=== PATIENT | male | born 1960 ===

== ENCOUNTER 2017-05-30 13:10 | Emergency (ER) | payer OTHER ==
[2017-05-30 13:17] VITALS: TEMP 98.2
--- NOTE | 2017-05-30 13:41 | C.PDOC ---
History Of Present Illness 56 year old male presents to the ED for evaluation of worsening retention which began around 2 days ago. Patient reports small amount of urinary output as well as distention and suprapubic abdominal pain. Patient denies any other associated symptoms or prior history of urinary retention. worsening retention x 2 days. +SMALL URINE OUTPUT. +SUPRAPUB PAIN, DISTENTION. NO OTHER ASSOC SX. NO PRIOR HO URINARY RETENTION EXAM MOD DIST ABD +SUPRAPUB TEND DISTENDED SOFT Time Seen by Provider: 05/30/17 13:22 Chief Complaint (Nursing): Abdominal Pain History Per: Patient History/Exam Limitations: no limitations Onset/Duration Of Symptoms: Days (2) Current Symptoms Are (Timing): Still Present Quality Of Discomfort: "Pain" Additional History Per: Patient Past Medical History Reviewed: Historical Data, Nursing Documentation, Vital Signs Vital Signs: Last Vital Signs Temp 98.2 F 05/30/17 13:14 Pulse 75 05/30/17 13:14 Resp 16 05/30/17 13:14 BP 163/83 H 05/30/17 13:14 Pulse Ox 99 05/30/17 14:23 - Medical History PMH: No Chronic Diseases Surgical History: No Surg Hx Family History: States: Unknown Family Hx - Social History Hx Alcohol Use: Yes Hx Substance Use: No - Immunization History Hx Tetanus Toxoid Vaccination: No Hx Influenza Vaccination: No Hx Pneumococcal Vaccination: No Review Of Systems Gastrointestinal: Positive for: Abdominal Pain (suprapubic ), Other (abdominal distention ) Genitourinary: Positive for: Other (small urine output ) Physical Exam - Physical Exam Appears: Non-toxic, Other (moderate distress ) Skin: Normal Color, Warm, Dry Head: Atraumatic, Normacephalic Eye(s): bilateral: Normal Inspection Oral Mucosa: Moist Neck: Supple Chest: Symmetrical, No Deformity, No Tenderness Cardiovascular: Rhythm Regular, No Murmur Respiratory: Normal Breath Sounds, No Rales, No Rhonchi, No Wheezing Gastrointestinal/Abdominal: Soft, Tenderness (suprapubic ), Distention, No Guarding, No Rebound Extremity: Normal ROM, Capillary Refill (less than 2 seconds ) Neurological/Psych: Oriented x3, Normal Speech, Normal Cognition Gait: Steady ED Course And Treatment O2 Sat by Pulse Oximetry: 99 (on RA ) Pulse Ox Interpretation: Normal Progress Note: Flomax PO administered. Progress - Re-Evaluation Re-evaluation Note: 05/30/17 13:39 PROCEDURE: BEDSIDE BLADDER SCAN BY ME. +>850 CC URINARY RETENTION. PT TOLERATED WELL 05/30/17 14:38 FEELS BETTER. - Data Reviewed Data Reviewed: Diagnostic imaging, Old records Disposition Counseled Patient/Family Regarding: Studies Performed, Diagnosis, Need For Followup, Rx Given - Disposition Referrals: Colton Hernandez MD [Staff Provider] - Disposition: HOME/ ROUTINE Disposition Time: 14:39 Condition: IMPROVED Prescriptions: Ciprofloxacin [Cipro] 1 tab PO BID #14 tab Tamsulosin [Flomax] 0.4 mg PO DAILY #14 cap Instructions: Urinary Retention in Men (ED), Vigil Catheter Placement and Care (ED) Forms: [employer] (Nauruan) Print Language: ZIMBABWEAN - Clinical Impression Clinical Impression: Acute urinary retention - Scribe Statement The provider has reviewed the documentation as recorded by the Scribe (Rosario Gaona) Provider Attestation: All medical record entries made by the Scribe were at my direction and personally dictated by me. I have reviewed the chart and agree that the record accurately reflects my personal performance of the history, physical exam, medical decision making, and the department course for this patient. I have also personally directed, reviewed, and agree with the discharge instructions and disposition.
[2017-05-30 14:45] VITALS: BP 125/65; PULSE 72; RESP 18; O2SAT 98
== END 2017-05-30 14:55 | disposition home or self-care (01) ==
LOC: C.ER 13:10
DX: R33.9 Retention of urine, unspecified (principal)

== ENCOUNTER 2017-12-04 09:48 | Emergency (ER) | payer OTHER ==
[2017-12-04] MEDS ORDERED: Sodium Chloride 0.9% 1,000 ML IV ONE (10:19)
[2017-12-04] MEDS ORDERED: Sodium Chloride 0.9% 1,000 ML ONE (10:30)
--- NOTE | 2017-12-04 10:45 | C.PDOC ---
History Of Present Illness 57 year old male presents to ED for evaluation of generalized abdominal pain, and multiple episodes of diarrhea for the last 2 days. Patient states his symptoms began after eating goat stew at a restaurant 2 days ago. Patient reports trying Imodium, Pepto-Bismol, and some tea without relief. Notes feeling dehydrated. Otherwise, denies nausea, vomiting, blood in stool, urinary symptoms, fever, chills, or any other complaints at this time. Time Seen by Provider: 12/04/17 10:13 Chief Complaint (Nursing): Abdominal Pain History Per: Patient History/Exam Limitations: no limitations Onset/Duration Of Symptoms: Days Current Symptoms Are (Timing): Still Present Location Of Pain/Discomfort: Diffuse Quality Of Discomfort: "Pain" Associated Symptoms: Diarrhea. denies: Fever, Chills, Nausea, Vomiting, Loss Of Appetite, Back Pain, Urinary Symptoms Exacerbating Factors: None Alleviating Factors: None Recent travel outside of the [place]: No Additional History Per: Patient Past Medical History Reviewed: Historical Data, Nursing Documentation, Vital Signs Vital Signs: Last Vital Signs Temp 98.0 F 12/04/17 11:37 Pulse 80 12/04/17 11:37 Resp 14 12/04/17 11:37 BP 117/67 12/04/17 11:37 Pulse Ox 98 12/04/17 11:37 - Medical History PMH: Asthma Family History: States: Unknown Family Hx - Social History Hx Alcohol Use: Yes Hx Substance Use: No - Immunization History Hx Tetanus Toxoid Vaccination: No Hx Influenza Vaccination: No Hx Pneumococcal Vaccination: No Review Of Systems Except As Marked, All Systems Reviewed And Found Negative. Constitutional: Negative for: Fever, Chills Cardiovascular: Negative for: Chest Pain, Palpitations Respiratory: Negative for: Cough, Shortness of Breath Gastrointestinal: Positive for: Abdominal Pain, Diarrhea. Negative for: Nausea , Vomiting, Melena, Hematochezia Genitourinary: Negative for: Dysuria, Frequency, Hematuria Neurological: Negative for: Headache, Dizziness Physical Exam - Physical Exam Appears: Non-toxic, No Acute Distress Skin: Normal Color, Warm, Dry Head: Atraumatic, Normacephalic Eye(s): bilateral: Normal Inspection Tongue: Other (moist tongue) Lips: Other (dry lips) Throat: Normal Neck: Normal ROM, Supple Cardiovascular: Rhythm Regular, No Murmur Respiratory: Normal Breath Sounds, No Rales, No Rhonchi, No Wheezing Gastrointestinal/Abdominal: Bowel Sounds (hyperactive), Soft, No Tenderness, No Guarding, No Rebound Back: No CVA Tenderness Extremity: Normal ROM, No Deformity Neurological/Psych: Oriented x3, Normal Speech ED Course And Treatment - Laboratory Results Result Diagrams: 12/04/17 10:43 12/04/17 10:43 O2 Sat by Pulse Oximetry: 99 (RA) Pulse Ox Interpretation: Normal Medical Decision Making Medical Decision Making: Impression: abdominal pain and diarrhea Plan: Blood work Urinalysis Pepcid, IV fluids Progress note: Labs reviewed showing no leukocytosis, bands or significant electrolyte abnormality. Patient was treated with IV fluids and Pepcid. On re- evaluation, patient is resting comfortably and reported feeling better. Abdomen remains soft, and non-tender. He had no fever and stable vital signs. Patient to be discharged with Rx. Advised BRAT diet and to take analgesics and drink fluids. Patient felt comfortable going home and given follow up instructions. Disposition Counseled Patient/Family Regarding: Diagnosis, Need For Followup, Rx Given - Disposition Disposition: HOME/ ROUTINE Disposition Time: 11:55 Condition: IMPROVED Additional Instructions: Drink fluids to prevent dehydration. Take protonix for abdominal pain, continue immodium. Try low-fat diet with increase in fluids such as sport drink, or gelatin. Try soup, rice, bread, crackers, cereal, or bananas to help with diarrhea. Avoid high sugar foods or drinks (soda and juice) , fatty foods Prescriptions: Pantoprazole Sodium [Protonix] 20 mg PO DAILY #20 ect Instructions: Diarrhea in Adolescents and Adults Forms: [facility] (Burundian) Print Language: MAURITANIAN - Clinical Impression Clinical Impression: Diarrhea, Abdominal colic - PA / AIRPORT OPERATIONS OFFICER / Resident Statement MD/DO has reviewed & agrees with the documentation as recorded. - Scribe Statement The provider has reviewed the documentation as recorded by the Penelope Gaona All medical record entries made by the Penelope were at my direction and personally dictated by me. I have reviewed the chart and agree that the record accurately reflects my personal performance of the history, physical exam, medical decision making, and the department course for this patient. I have also personally directed, reviewed, and agree with the discharge instructions and disposition.
[2017-12-04 10:52] LABS: BASO % 0.3 % (0.0-2.0); EOS # 0.1 K/uL (0.0-0.7); EOS % 1.5 % (0.0-4.0); HEMOGLOBIN 15.6 g/dL (12.0-18.0); LYMPH # 1.1 K/uL (1.0-4.3); LYMPH % 14.3 % (20.0-40.0); MEAN CELL VOLUME 84.4 fL (80.0-94.0); MEAN CORPUSCULAR HEMOGLOBIN 28.9 pg (27.0-31.0); MEAN CORPUSCULAR HGB CONC 34.3 g/dL (33.0-37.0); MEAN PLATELET VOLUME 7.7 fL (7.2-11.7); MONO # 0.7 K/uL (0.0-0.8); MONO % 9.6 % (0.0-10.0); NEUT # 5.6 K/uL (1.8-7.0); NEUT % 74.3 % (50.0-75.0); RBC 5.41 Mil/uL (4.40-5.90); RED CELL DISTRIBUTION WIDTH 13.9 % (11.5-14.5); WHITE BLOOD COUNT 7.5 K/uL (4.8-10.8)
[2017-12-04 10:56] LABS: SQUAMOUS EPITHIAL 1 /hpf (0-5); URINE BACTERIA RARE (<OCC); URINE BILIRUBIN NEGATIVE (NEGATIVE); URINE BLOOD NEGATIVE (NEGATIVE); URINE CLARITY Hazy (Clear); URINE COLOR Yellow (YELLOW); URINE GLUCOSE (UA) NORMAL (Normal); URINE LEUKOCYTE ESTERASE 2+ Leu/uL (Negative); URINE PROTEIN 1+ mg/dL (NEGATIVE); URINE UROBILINOGEN NORMAL mg/dL (0.2-1.0)
[2017-12-04 11:02] LABS: ALB/GLOB RATIO 1.1 (1.0-2.1); ALBUMIN 4.5 g/dL (3.5-5.0); ALT/SGPT 52 U/L (21-72); AST/SGOT 29 U/L (17-59); BLOOD UREA NITROGEN 22 mg/dL (9-20); CALCIUM 8.4 mg/dl (8.6-10.4); GFR AFRICAN-AMERICAN > 60; GFR NON-AFRICAN AMERICAN > 60; LIPASE 217 U/L (23-300)
[2017-12-04 11:38] VITALS: BP 117/67; PULSE 80; RESP 14; TEMP 98
[2017-12-04 15:36] VITALS: O2SAT 99
== END 2017-12-04 11:56 | disposition home or self-care (01) ==
LOC: C.ER 09:48
DX: R10.84 Generalized abdominal pain (principal); R19.7 Diarrhea, unspecified
CPT/HCPCS: 80053; 81001; 83690; 85025; 96361; 96374; 99285; J7040

== ENCOUNTER 2017-12-05 09:09 | Emergency (ER) | payer OTHER ==
[2017-12-05 09:16] VITALS: RESP 20; TEMP 97.9; O2SAT 98
[2017-12-05] MEDS ORDERED: Sodium Chloride 0.9% 1,000 ML IV ONE (09:29)
--- NOTE | 2017-12-05 09:39 | C.PDOC ---
History Of Present Illness 57 year old male presents to ED for evaluation of generalized abdominal pain, and multiple episodes of non-bloody diarrhea for the last 3 days. He reports diarrhea is watery and foul smelling. He was seen in ED yesterday, did not fill scripts and states he feels weak. Patient states his symptoms began after eating goat stew at a restaurant 3 days ago. Patient reports trying Imodium, Pepto-Bismol, and some tea without relief. Otherwise, denies nausea, vomiting, blood in stool, urinary symptoms, fever, chills, or any other complaints at this time. Time Seen by Provider: 12/05/17 09:25 Chief Complaint (Nursing): Abdominal Pain History Per: Patient History/Exam Limitations: no limitations Onset/Duration Of Symptoms: Days Current Symptoms Are (Timing): Still Present Context: Food Location Of Pain/Discomfort: Diffuse Radiation Of Pain To:: None Quality Of Discomfort: "Pain" Associated Symptoms: Diarrhea. denies: Nausea, Vomiting, Back Pain, Chest Pain , Urinary Symptoms Exacerbating Factors: None Alleviating Factors: None. denies: OTC Meds Recent travel outside of the [place]: No Additional History Per: Patient Past Medical History Reviewed: Historical Data, Nursing Documentation, Vital Signs Vital Signs: Last Vital Signs Temp 97.9 F 12/05/17 12:28 Pulse 69 12/05/17 12:28 Resp 20 12/05/17 12:28 BP 117/73 12/05/17 12:28 Pulse Ox 98 12/05/17 13:58 - Medical History PMH: Asthma, Benign Prostatic Hyperplasia Family History: States: Unknown Family Hx - Social History Hx Alcohol Use: Yes Hx Substance Use: No - Immunization History Hx Tetanus Toxoid Vaccination: No Hx Influenza Vaccination: No Hx Pneumococcal Vaccination: No Review Of Systems Except As Marked, All Systems Reviewed And Found Negative. Constitutional: Positive for: Weakness. Negative for: Fever, Chills Gastrointestinal: Positive for: Abdominal Pain, Diarrhea. Negative for: Nausea , Vomiting, Melena, Hematochezia Genitourinary: Negative for: Dysuria, Frequency, Hematuria Musculoskeletal: Negative for: Back Pain Physical Exam - Physical Exam Appears: Non-toxic, No Acute Distress Skin: Normal Color, Warm, Dry Head: Atraumatic, Normacephalic Eye(s): bilateral: Normal Inspection Oral Mucosa: Moist Neck: Normal ROM, Supple Cardiovascular: Rhythm Regular, No Murmur Respiratory: Normal Breath Sounds, No Rales, No Rhonchi, No Wheezing Gastrointestinal/Abdominal: Soft, Tenderness (generalized), No Guarding, No Rebound Back: No CVA Tenderness Extremity: Normal ROM, No Deformity Neurological/Psych: Oriented x3, Normal Speech ED Course And Treatment - Laboratory Results Result Diagrams: 12/05/17 10:08 12/05/17 10:08 O2 Sat by Pulse Oximetry: 98 (RA) Pulse Ox Interpretation: Normal - CT Scan/US Abd & Pelvis CT Other Rad Studies (CT/US): Read By Radiologist, Radiology Report Reviewed CT/US Interpretation: CT abdomen and pelvis. History: Abdominal pain. Diarrhea. Comparison: None available. Technique: Multiple contiguous axial images were performed through the abdomen and pelvis with the use of intravenous contrast. Subsequently, sagittal and coronal reformatted images were obtained. This CT exam was performed using one or more of the following dose reduction techniques: Automated exposure control, adjustment of the mA and/ or kV according to patient size, and/or use of iterative reconstruction technique. Findings: Scattered atelectasis at the lung bases. No pleural or pericardial effusion. Prominent liver with diffuse fatty infiltration. Gallbladder appears preserved. Spleen appears preserved. Nodular thickening of the adrenal glands with an 8 millimeter low-attenuation lesion in the left adrenal gland demonstrating a Hounsfield unit attenuation of 48, indeterminate. Pancreas appears preserved. Upper abdominal bowel grossly preserved. Right kidney: No calculi or hydronephrosis. Left Kidney: No calculi or hydronephrosis. Underdistended and or mildly thickened urinary bladder. Prominent heterogeneous prostate measuring up to 7.3 x 6 centimeters with associated internal calcifications. Underdistention and or mild thickening of the transverse and descending colon. Fluid-filled ascending colon. Scattered diverticuli. Appendix within normal limits. Few shotty para-aortic and inguinal lymph nodes. Few shotty mesenteric lymph nodes. Small fat containing bilateral inguinal hernias. Degenerative changes in the spine. Anterolisthesis of L4 on L5 with associated pars defects. Impression: 1. Underdistention and or mild thickening of the transverse and descending colon. Fluid-filled ascending colon. Clinical correlation. 2. Prominent heterogeneous prostate measuring up to 7.3 x 6 centimeters with associated internal calcifications. Clinical correlation. 3. Prominent liver with diffuse fatty infiltration. 4. Nodular thickening of the adrenal glands with an 8 millimeter low-attenuation lesion in the left adrenal gland demonstrating a Hounsfield unit attenuation of 48, indeterminate. 5. Underdistended and or mildly thickened urinary bladder. 6. Small fat containing bilateral inguinal hernias. 7. Anterolisthesis of L4 on L5 with associated pars defects. Medical Decision Making Medical Decision Making: Impression: Diarrhea Plan: Abd & Pelvis CT Blood work Urinalysis IV fluids Progress: Labs reviewed with no acute changes from yesterday. CT scan does not show any surgical or infectious pathology. See full report. Reassess: On reassessment, patient is resting comfortably, abdomen remains soft. Patient states he is feeling better. Discussed results with patient, and copy of CT report was provided. Patient feels comfortable going home and will be discharged. Patient given follow up instructions. Instructed to return to ER if symptoms worsen or new symptoms arise. Disposition Counseled Patient/Family Regarding: Diagnosis, Need For Followup, Rx Given - Disposition Referrals: [facility] [Outside] [facility] [Outside] Disposition: HOME/ ROUTINE Disposition Time: 12:10 Condition: IMPROVED Additional Instructions: Vaya a duron mdico o la clnica en 2-5 tomas sin falta, para mas evaluacin. [place] los medicamentos rosalia indicado. Volver a la jarett de emergencia en cualquier momento si los sntomas persisten o empeoran. Prescriptions: Ciprofloxacin [Cipro] 1 tab PO BID #14 tab Instructions: Diarrhea in Adolescents and Adults Forms: [employer] (Romanian) Print Language: CO[place] RICAN - Clinical Impression Clinical Impression: Diarrhea - PA / SLURRY CONTROL OPERATOR HELPER / Resident Statement MD/DO has reviewed & agrees with the documentation as recorded. - Scribe Statement The provider has reviewed the documentation as recorded by the Corazonibe Db Gaona All medical record entries made by the Corazonibe were at my direction and personally dictated by me. I have reviewed the chart and agree that the record accurately reflects my personal performance of the history, physical exam, medical decision making, and the department course for this patient. I have also personally directed, reviewed, and agree with the discharge instructions and disposition.
[2017-12-05] MEDS ORDERED: Iohexol 300 100 ML IJ ONE (09:48)
[2017-12-05] MEDS ORDERED: Sodium Chloride 0.9% 1,000 ML ONE (09:51)
[2017-12-05 10:11] LABS: BASO % 0.6 % (0.0-2.0); EOS # 0.1 K/uL (0.0-0.7); EOS % 1.6 % (0.0-4.0); HEMOGLOBIN 15.3 g/dL (12.0-18.0); LYMPH # 1.6 K/uL (1.0-4.3); LYMPH % 28.2 % (20.0-40.0); MEAN CORPUSCULAR HEMOGLOBIN 28.8 pg (27.0-31.0); MEAN CORPUSCULAR HGB CONC 34.2 g/dL (33.0-37.0); MEAN PLATELET VOLUME 7.5 fL (7.2-11.7); MONO % 17.2 % (0.0-10.0); NEUT # 2.9 K/uL (1.8-7.0); NEUT % 52.4 % (50.0-75.0); NRBC % 0.1 % (0.0-2.0); RBC 5.32 Mil/uL (4.40-5.90); WHITE BLOOD COUNT 5.6 K/uL (4.8-10.8)
[2017-12-05 10:25] LABS: URINE BACTERIA RARE (<OCC); URINE BILIRUBIN NEGATIVE (NEGATIVE); URINE BLOOD NEGATIVE (NEGATIVE); URINE CLARITY Hazy (Clear); URINE COLOR Yellow (YELLOW); URINE GLUCOSE (UA) NORMAL (Normal); URINE LEUKOCYTE ESTERASE 2+ Leu/uL (Negative); URINE PROTEIN 1+ mg/dL (NEGATIVE); URINE UROBILINOGEN NORMAL mg/dL (0.2-1.0)
[2017-12-05 10:48] LABS: ALT/SGPT 42 U/L (21-72); AST/SGOT 50 U/L (17-59); BLOOD UREA NITROGEN 15 mg/dL (9-20); CALCIUM 8.5 mg/dl (8.6-10.4); GFR AFRICAN-AMERICAN > 60; GFR NON-AFRICAN AMERICAN > 60; LIPASE 208 U/L (23-300)
--- NOTE | 2017-12-05 12:13 | CT ---
CT abdomen and pelvis History: Abdominal pain. Diarrhea. Comparison: None available. Technique: Multiple contiguous axial images were performed through the abdomen and pelvis with the use of intravenous contrast. Subsequently, sagittal and coronal reformatted images were obtained. This CT exam was performed using one or more of the following dose reduction techniques: Automated exposure control, adjustment of the mA and/or kV according to patient size, and/or use of iterative reconstruction technique. Findings: Scattered atelectasis at the lung bases. No pleural or pericardial effusion. Prominent liver with diffuse fatty infiltration. Gallbladder appears preserved. Spleen appears preserved. Nodular thickening of the adrenal glands with an 8 millimeter low-attenuation lesion in the left adrenal gland demonstrating a Hounsfield unit attenuation of 48, indeterminate. Pancreas appears preserved. Upper abdominal bowel grossly preserved. Right kidney: No calculi or hydronephrosis. Left Kidney: No calculi or hydronephrosis. Underdistended and or mildly thickened urinary bladder. Prominent heterogeneous prostate measuring up to 7.3 x 6 centimeters with associated internal calcifications. Underdistention and or mild thickening of the transverse and descending colon. Fluid-filled ascending colon. Scattered diverticuli. Appendix within normal limits. Few shotty para-aortic and inguinal lymph nodes. Few shotty mesenteric lymph nodes. Small fat containing bilateral inguinal hernias. Degenerative changes in the spine. Anterolisthesis of L4 on L5 with associated pars defects. Impression: 1. Underdistention and or mild thickening of the transverse and descending colon. Fluid-filled ascending colon. Clinical correlation. 2. Prominent heterogeneous prostate measuring up to 7.3 x 6 centimeters with associated internal calcifications. Clinical correlation. 3. Prominent liver with diffuse fatty infiltration. 4. Nodular thickening of the adrenal glands with an 8 millimeter low-attenuation lesion in the left adrenal gland demonstrating a Hounsfield unit attenuation of 48, indeterminate. 5. Underdistended and or mildly thickened urinary bladder. 6. Small fat containing bilateral inguinal hernias. 7. Anterolisthesis of L4 on L5 with associated pars defects.
[2017-12-05 12:29] VITALS: BP 117/73; PULSE 69
== END 2017-12-05 12:45 | disposition home or self-care (01) ==
LOC: C.ER 09:09
DX: R19.7 Diarrhea, unspecified (principal)
CPT/HCPCS: 74177; 80053; 81001; 83690; 85025; 96360; 99285; J7040; Q9967

== ENCOUNTER 2017-12-07 09:18 | Emergency (ER) | payer OTHER ==
[2017-12-07 09:32] VITALS: BMI 23.8
[2017-12-07] MEDS ORDERED: Sodium Chloride 0.9% 1,000 ML IV STA (11:22)
--- NOTE | 2017-12-07 11:25 | C.PDOC ---
History Of Present Illness 57 y/o M c PMHx DM, asthma p/w diarrhea x 5 days. Reports 12 episodes per day, watery, with diffuse generalized abdominal pain that is intermittent. Patient states symptoms began after eating goat stew. Has taken loperamide and pepto bismol without relief. This is his 3rd ED visit, was discharged on Cipro after last visit and is taking. CT was unremarkable for any emergent findings. Patient returns stating his diarrhea is not improving and he is feeling increasingly weak. Denies syncope, chest pain, dyspnea, nausea, vomiting, fever , bloody stool, recent travel, camping/hiking. Time Seen by Provider: 12/07/17 10:46 Chief Complaint (Nursing): GI Problem Past Medical History Vital Signs: Last Vital Signs Temp 98.3 F 12/07/17 09:32 Pulse 93 H 12/07/17 09:32 Resp 20 12/07/17 09:32 BP 122/78 12/07/17 09:32 Pulse Ox 97 12/07/17 11:25 - Medical History PMH: Asthma, Benign Prostatic Hyperplasia Family History: States: Unknown Family Hx - Social History Hx Alcohol Use: Yes Hx Substance Use: No - Immunization History Hx Tetanus Toxoid Vaccination: No Hx Influenza Vaccination: No Hx Pneumococcal Vaccination: No Review Of Systems Except As Marked, All Systems Reviewed And Found Negative. Constitutional: Negative for: Fever Cardiovascular: Negative for: Chest Pain Physical Exam - Physical Exam Additional Physical Exam Comments: Gen: NAD Head: NC/AT Eyes: No icterus ENT: MMM Neck: Supple Chest: No tenderness CV: Regular rate Lungs: CTA b/l Abd: Diffuse tenderness without guarding. Soft Back: NO CVA tenderness Skin: No rash Extremities: No edema Neuro: Alert, no focal deficit ED Course And Treatment - Laboratory Results Result Diagrams: 12/07/17 11:38 12/07/17 11:38 O2 Sat by Pulse Oximetry: 97 Medical Decision Making Medical Decision Making: Recheck labs for hydration status. IVF. Labs unchanged. Urine normal specific gravity, no ketones. Patient in no distress. Advised f/u clinic, continue Abx, PO hydration, instructed to return to ED for worsening pain, fever, dyspnea, vomiting. Disposition - Disposition Referrals: [facility] [Outside] Disposition: HOME/ ROUTINE Disposition Time: 12:31 Condition: STABLE Instructions: Diarrhea in Adolescents and Adults Forms: [facility] (Botswanan) - Clinical Impression Clinical Impression: Diarrhea
[2017-12-07 11:44] LABS: BASO % 0.5 % (0.0-2.0); EOS # 0.2 K/uL (0.0-0.7); EOS % 3.1 % (0.0-4.0); HEMOGLOBIN 16.1 g/dL (12.0-18.0); LYMPH # 1.7 K/uL (1.0-4.3); LYMPH % 33.1 % (20.0-40.0); MEAN CELL VOLUME 83.4 fL (80.0-94.0); MEAN CORPUSCULAR HEMOGLOBIN 28.9 pg (27.0-31.0); MEAN CORPUSCULAR HGB CONC 34.7 g/dL (33.0-37.0); MEAN PLATELET VOLUME 7.6 fL (7.2-11.7); MONO # 0.6 K/uL (0.0-0.8); MONO % 11.2 % (0.0-10.0); NEUT # 2.7 K/uL (1.8-7.0); NEUT % 52.1 % (50.0-75.0); NRBC % 0.1 % (0.0-2.0); RBC 5.56 Mil/uL (4.40-5.90); RED CELL DISTRIBUTION WIDTH 13.8 % (11.5-14.5); WHITE BLOOD COUNT 5.2 K/uL (4.8-10.8)
[2017-12-07 11:57] LABS: ALB/GLOB RATIO 1.3 (1.0-2.1); ALBUMIN 4.3 g/dL (3.5-5.0); ALT/SGPT 59 U/L (21-72); AST/SGOT 36 U/L (17-59); BLOOD UREA NITROGEN 12 mg/dL (9-20); CALCIUM 8.3 mg/dl (8.6-10.4); GFR AFRICAN-AMERICAN > 60; GFR NON-AFRICAN AMERICAN > 60; LIPASE 271 U/L (23-300)
[2017-12-07 12:24] LABS: SQUAMOUS EPITHIAL < 1 /hpf (0-5); URINE BACTERIA RARE (<OCC); URINE BILIRUBIN NEGATIVE (NEGATIVE); URINE BLOOD NEGATIVE (NEGATIVE); URINE CLARITY Hazy (Clear); URINE COLOR Yellow (YELLOW); URINE GLUCOSE (UA) NORMAL (Normal); URINE HYALINE CAST 0-2 /lpf (0-2); URINE LEUKOCYTE ESTERASE NEG Leu/uL (Negative); URINE PROTEIN NEGATIVE (NEGATIVE); URINE UROBILINOGEN NORMAL mg/dL (0.2-1.0)
[2017-12-07 12:52] VITALS: BP 125/79; PULSE 65; RESP 16; TEMP 97.6; O2SAT 99
== END 2017-12-07 13:15 | disposition home or self-care (01) ==
LOC: C.ER 09:18
DX: R19.7 Diarrhea, unspecified (principal)
CPT/HCPCS: 80053; 81001; 83690; 85025; 96360; 96361; 99285; J7040

== ENCOUNTER 2018-06-08 18:42 | Inpatient (IN) | payer OTHER ==
[2018-06-08 18:43] VITALS: BMI 23.8
--- NOTE | 2018-06-08 19:53 | C.PDOC ---
History Of Present Illness 57 year old male presents to the ED c/o inability to urinate for the past 4-5 hours. Patient is also states he had on and off episodes of diarrhea for the past 5 days as well. Patient denies fever, chills, nausea, vomit, weakness, nu mbness, rash. Chief Complaint (Nursing): Abdominal Pain History Per: Patient History/Exam Limitations: no limitations Onset/Duration Of Symptoms: Hrs (4-5) Location Of Pain/Discomfort: Suprapubic Radiation Of Pain To:: None Quality Of Discomfort: Pressure Associated Symptoms: Urinary Symptoms Alleviating Factors: None Recent travel outside of the [place]: No Additional History Per: Patient Past Medical History Reviewed: Historical Data, Nursing Documentation, Vital Signs Vital Signs: Last Vital Signs Temp 98.7 F 06/08/18 18:55 Pulse 106 H 06/08/18 18:55 Resp 20 06/08/18 18:55 BP 136/80 06/08/18 18:55 Pulse Ox 98 06/08/18 18:55 - Medical History PMH: Asthma, Benign Prostatic Hyperplasia Surgical History: No Surg Hx Family History: States: Unknown Family Hx - Social History Hx Alcohol Use: No Hx Substance Use: No - Immunization History Hx Tetanus Toxoid Vaccination: No Hx Influenza Vaccination: No Hx Pneumococcal Vaccination: No Review Of Systems Constitutional: Negative for: Fever, Chills Cardiovascular: Negative for: Chest Pain Respiratory: Negative for: Shortness of Breath Gastrointestinal: Positive for: Abdominal Pain. Negative for: Nausea, Vomiting Genitourinary: Positive for: Other (inability to urinate) Musculoskeletal: Negative for: Back Pain Neurological: Negative for: Weakness, Numbness Physical Exam - Physical Exam Appears: Non-toxic, In Acute Distress Skin: Normal Color, Warm, Dry Head: Atraumatic, Normacephalic Eye(s): bilateral: Normal Inspection Neck: Normal ROM, Supple Chest: Symmetrical Cardiovascular: Rhythm Regular Respiratory: Normal Breath Sounds, No Rales, No Rhonchi, No Wheezing Gastrointestinal/Abdominal: Soft, No Tenderness, Distention, No Guarding, No Rebound, Other (bladder distended) Extremity: Normal ROM, No Tenderness, No Swelling Neurological/Psych: Oriented x3, Normal Speech, Normal Cognition Gait: Steady ED Course And Treatment - Laboratory Results Result Diagrams: 06/08/18 20:26 10/10/18 20:26 ECG: Interpreted By Me, Viewed By Me ECG Rhythm: Sinus Tachycardia ECG Interpretation: Normal, No Acute Changes Interpretation Of ECG: Sinus tachycardia, otherwise normal tracings. Rate From EC O2 Sat by Pulse Oximetry: 98 (ON RA) Pulse Ox Interpretation: Normal - Radiology CXR: Interpreted by Me, Viewed By Me CXR Interpretation: Yes: No Acute Disease, Other (normal chest film) Medical Decision Making Medical Decision Making: Plan: * Labs * IV fluids * Urine culture * UA Disposition Discussed With DrManish: Julio Briseno Doctor Will See Patient In The: Hospital Counseled Patient/Family Regarding: Diagnosis - Disposition Disposition: HOSPITALIZED Disposition Time: 02:16 Condition: STABLE Forms: [employer] (Canadian) - POA Present On Arrival: None - Clinical Impression Clinical Impression: UTI (urinary tract infection), Urinary retention, Enteritis - Scribe Statement The provider has reviewed the documentation as recorded by the Scribe Robert Almanzar All medical record entries made by the Scribe were at my direction and personally dictated by me. I have reviewed the chart and agree that the record accurately reflects my personal performance of the history, physical exam, [facility] decision making, and the department course for this patient. I have also personally directed, reviewed, and agree with the discharge instructions and disposition.
[2018-06-08] MEDS ORDERED: Sodium Chloride 0.9% 1,000 ML IV ONE ×2 (19:56)
[2018-06-08] MEDS ORDERED: Sodium Chloride 0.9% 500 ML IV ONE (19:56)
[2018-06-08 20:42] LABS: BASO # 0.1 K/uL (0.0-0.2); BASO % 0.2 % (0.0-2.0); EOS % 0.1 % (0.0-4.0); LYMPH # 0.8 K/uL (1.0-4.3); LYMPH % 3.3 % (20.0-40.0); MEAN CELL VOLUME 84.2 fL (80.0-94.0); MEAN CORPUSCULAR HEMOGLOBIN 29.2 pg (27.0-31.0); MEAN CORPUSCULAR HGB CONC 34.7 g/dL (33.0-37.0); MEAN PLATELET VOLUME 7.6 fL (7.2-11.7); MONO # 1.3 K/uL (0.0-0.8); MONO % 5.5 % (0.0-10.0); NEUT # 21.1 K/uL (1.8-7.0); NEUT % 90.9 % (50.0-75.0); NRBC % 0.1 % (0.0-2.0); PLATELET COUNT 177 K/uL (130-400); RBC 4.82 Mil/uL (4.40-5.90); RED CELL DISTRIBUTION WIDTH 13.9 % (11.5-14.5)
[2018-06-08 20:47] LABS: SQUAMOUS EPITHIAL 2 /hpf (0-5); URINE BILIRUBIN NEGATIVE (NEGATIVE); URINE BLOOD 3+ (NEGATIVE); URINE CLARITY Turbid (Clear); URINE COLOR Yellow (YELLOW); URINE GLUCOSE (UA) 3+ mg/dL (Normal); URINE LEUKOCYTE ESTERASE 3+ Leu/uL (Negative); URINE PROTEIN 2+ mg/dL (NEGATIVE); URINE UROBILINOGEN NORMAL mg/dL (0.2-1.0)
[2018-06-08 20:50] LABS: HEMOGLOBIN 14.1 g/dL (12.0-18.0); WHITE BLOOD COUNT 23.2 K/uL (4.8-10.8)
[2018-06-08 20:53] LABS: ALB/GLOB RATIO 1.3 (1.0-2.1); ALBUMIN 4.1 g/dL (3.5-5.0); ALT/SGPT 34 U/L (21-72); AST/SGOT 32 U/L (17-59); BLOOD UREA NITROGEN 15 mg/dL (9-20); CALCIUM 9.3 mg/dl (8.6-10.4); GFR NON-AFRICAN AMERICAN 57; LIPASE 110 U/L (23-300)
[2018-06-08] MEDS ORDERED: Sodium Chloride 0.9% 1,000 ML ONE (21:02)
[2018-06-08 21:32] LABS: BANDS 1 % (0-2); LYMPHOCYTE 3 % (20-40); MONOCYTE 3 % (0-10); NEUTROPHIL 93 % (50-75); PLATELET ESTIMATE NORMAL (NORMAL); TOTAL CELLS COUNTED 100
[2018-06-08] MEDS ORDERED: Ciprofloxacin 400mg/200ml D5W 400 MG/200 ML BAG IVPB STA (23:28)
[2018-06-08] MEDS ORDERED: Ciprofloxacin 400mg/200ml D5W 400 MG/200 ML BAG IVPB ONE (23:34)
[2018-06-09] MEDS ORDERED: metroNIDAZOLE IV 500 mg/100 ml 500 MG/100 ML BAG IVPB SCH (00:15)
[2018-06-09] MEDS ORDERED: metroNIDAZOLE IV 500 mg/100 ml 500 MG/100 ML BAG ONE ×2 (00:33→05:32)
[2018-06-09 01:42] LABS: VENOUS BLOOD GAS BASE EXCESS -3.2 mmol/L (0.0-2.0); VENOUS BLOOD GAS PCO2 29 mmHg (40-60); VENOUS BLOOD GAS PO2 60 mm/Hg (30-55); VENOUS BLOOD PH 7.44 (7.32-7.43)
[2018-06-09] MEDS ORDERED: Glucagon Recombinant 1 mg Inj IM PRN (03:08)
[2018-06-09] MEDS ORDERED: Albuterol-Ipratrop 3 mg / 0.5 (3 ml) UD INH PRN (03:17)
[2018-06-09] MEDS ORDERED: Dextrose 50% SYRINGE Inj (50 ml) IV STA (03:18)
--- NOTE | 2018-06-09 03:24 | CP.PCM.HP ---
<TyraEdwin - Last Filed: 06/09/18 03:22> History of Present Illness - History of Present Illness History of Present Illness: Edwin Mary PGY1 H&P for Dr. Briseno 58yo M with PMH DM2, asthma, BPH presents to ED with 2 day history of fever, chills, and diarrhea. He reports a subjective fever at home. He tried pepto at home for the diarrhea but found no relief. He reports his at home is sick as well with viral-like symptoms. He denies any recent travel or eating at any barbeques. He reports associated increase in urinary frequency and dysuria. He denies blood in the urine. Today, he felt that he could not urinate, so he came to the ED. He denies any shortness of breath, chest pain, nausea, vomiting. In the ED, his UA was + for leuk esterase, WBC was 23.2 and Tmax was 100.6. He was given cipro and flagyl. A león was place and he voided urine. SxH: denies FamH: mom HTN, dad DM, cancer SocH: denies tobacco or recreational drug use. reports occasional etoh use Meds: "natural" DM and prostate meds? Allergies: NKDA, pollen PMD: at [facility] Present on Admission - Present on Admission Any Indicators Present on Admission: No Review of Systems - Review of Systems Review of Systems: as per HPI Past Patient History - Infectious Disease Hx of Infectious Diseases: None - Past Social History Smoking Status: Never Smoked - PULMONARY Hx Asthma: Yes - ENDOCRINE/METABOLIC Hx Endocrine Disorders: Yes Hx Diabetes Mellitus Type 2: Yes - PSYCHIATRIC Hx Substance Use: No - SURGICAL HISTORY Hx Surgeries: No - ANESTHESIA Hx Anesthesia: No Hx Anesthesia Reactions: No Hx Malignant Hyperthermia: No Meds Allergies/Adverse Reactions: Allergies Allergy/AdvReac Type Severity Reaction Status Date / Time No Known Allergies Allergy Verified 06/08/18 19:03 Physical Exam - Constitutional Appears: Well, No Acute Distress - Head Exam Head Exam: ATRAUMATIC, NORMOCEPHALIC - Eye Exam Eye Exam: EOMI, Normal appearance, PERRL Pupil Exam: NORMAL ACCOMODATION - ENT Exam ENT Exam: Mucous Membranes Moist, Normal Exam - Neck Exam Neck exam: Positive for: Normal Inspection - Respiratory Exam Respiratory Exam: Clear to Auscultation Bilateral, NORMAL BREATHING PATTERN. absent: Rales, Rhonchi, Wheezes, Respiratory Distress - Cardiovascular Exam Cardiovascular Exam: REGULAR RHYTHM, +S1, +S2. absent: Gallop, Rubs, Systolic Murmur - GI/Abdominal Exam GI & Abdominal Exam: Normal Bowel Sounds, Soft, Tenderness. absent: Distended, Firm, Guarding Additional comments: tenderness to palpation of all four quadrants suprapubic tenderness - Extremities Exam Extremities exam: Positive for: normal inspection. Negative for: pedal edema, tenderness - Neurological Exam Neurological exam: Alert, CN II-XII Intact, Oriented x3 - Psychiatric Exam Psychiatric exam: Normal Affect, Normal Mood - Skin Skin Exam: Diaphoretic, Normal Color, Warm Results - Vital Signs Recent Vital Signs: Last Vital Signs Temp 98.3 F 06/09/18 01:29 Pulse 91 H 06/09/18 01:29 Resp 16 06/09/18 01:29 BP 127/71 06/09/18 01:29 Pulse Ox 98 06/09/18 02:17 - Labs Result Diagrams: 06/08/18 20:26 06/08/18 20:26 Labs: Laboratory Results - last 24 hr 06/08/18 06/08/18 06/08/18 20:26 20:26 20:26 WBC 23.2 H D RBC 4.82 Hgb 14.1 D Hct 40.6 MCV 84.2 MCH 29.2 MCHC 34.7 RDW 13.9 Plt Count 177 MPV 7.6 Neut % (Auto) 90.9 H Lymph % (Auto) 3.3 L [place] % (Auto) 5.5 Eos % (Auto) 0.1 Baso % (Auto) 0.2 Neut # (Auto) 21.1 H Lymph # (Auto) 0.8 L [place] # (Auto) 1.3 H Eos # (Auto) 0.0 Baso # (Auto) 0.1 Neutrophils % (Manual) 93 H Band Neutrophils % 1 Lymphocytes % (Manual) 3 L Monocytes % (Manual) 3 Platelet Estimate Normal RBC Morphology Normal pO2 VBG pH VBG pCO2 VBG HCO3 VBG Total CO2 VBG O2 Sat (Calc) VBG Base Excess VBG Potassium Glucose Lactate Sodium 134 Potassium 4.0 Chloride 101 Carbon Dioxide 20 L Anion Gap 18 BUN 15 Creatinine 1.3 Est GFR ( Amer) > 60 Est GFR (Non-Af Amer) 57 Random Glucose 236 H Calcium 9.3 Total Bilirubin 0.6 AST 32 ALT 34 Alkaline Phosphatase 105 Total Protein 7.3 Albumin 4.1 Globulin 3.2 Albumin/Globulin Ratio 1.3 Lipase 110 Venous Blood Potassium Urine Color Yellow Urine Clarity Turbid Urine pH 7.0 Ur Specific [place] 1.010 Urine Protein 2+ H Urine Glucose (UA) 3+ H Urine Ketones Negative Urine Blood 3+ H Urine Nitrate Negative Urine Bilirubin Negative Urine Urobilinogen Normal Ur Leukocyte Esterase 3+ H Urine WBC (Auto) 2129 H Urine RBC (Auto) 764 H Ur Squamous Epith Cells 2 06/09/18 01:05 WBC RBC Hgb Hct MCV MCH MCHC RDW Plt Count MPV Neut % (Auto) Lymph % (Auto) [place] % (Auto) Eos % (Auto) Baso % (Auto) Neut # (Auto) Lymph # (Auto) [place] # (Auto) Eos # (Auto) Baso # (Auto) Neutrophils % (Manual) Band Neutrophils % Lymphocytes % (Manual) Monocytes % (Manual) Platelet Estimate RBC Morphology pO2 60 H VBG pH 7.44 H VBG pCO2 29 L VBG HCO3 22.3 VBG Total CO2 20.6 L VBG O2 Sat (Calc) 94.7 H VBG Base Excess -3.2 L VBG Potassium 3.4 L Glucose 171 H Lactate 0.9 Sodium 137.0 Potassium Chloride 107.0 Carbon Dioxide Anion Gap BUN Creatinine Est GFR ( Amer) Est GFR (Non-Af Amer) Random Glucose Calcium Total Bilirubin AST ALT Alkaline Phosphatase Total Protein Albumin Globulin Albumin/Globulin Ratio Lipase Venous Blood Potassium 3.4 L Urine Color Urine Clarity Urine pH Ur Specific [place] Urine Protein Urine Glucose (UA) Urine Ketones Urine Blood Urine Nitrate Urine Bilirubin Urine Urobilinogen Ur Leukocyte Esterase Urine WBC (Auto) Urine RBC (Auto) Ur Squamous Epith Cells Assessment & Plan - Assessment and Plan (Free Text) Assessment: 58yo M with PMH DM2, asthma, BPH presents to ED with 2 day history of fever, chills, and diarrhea admitted for evaluation and treatment of sepsis secondary to likely UTI. Plan: Sepsis - pt with diarrhea, dysuria - likely secondary to UTI and enteritis - Tmax 100.6 - WBC 23.2 - HR 102 - CXR: no active disease - EKG: sinus tachy @104 bpm - pt given cipro and flagyl in ED - start rocephin 1g IV daily - start flagyl 500mg IV q6h - f/u UCx, BCx, Stool Cx - f/u procal - f/u lactate Diarrhea - likely secondary to viral/bacterial enteritis - Tmax 100.6 - WBC 23.2 - start rocephin 1g IV daily - start flagyl 500mg IV q6h - f/u stool Cx, ova & parasites BPH - pt with urinary retention - león cath placed in ED, pt voided urine - start flomax 0.4 PO daily DM2 - Glucose - low dose sliding scale - accuchecks ACHS - hypoglycemic protocol Asthma - pt denies shortness of breath - duonebs 3L INH q4h PRN PPX DVT: SCDs GI: protonix 40 po daily HHD Case reviewed and plan discussed with Dr. Briseno <Julio Briseno - Last Filed: 06/09/18 06:16> Results - Vital Signs Recent Vital Signs: Last Vital Signs Temp 98.6 F 06/09/18 04:00 Pulse 89 06/09/18 05:34 Resp 18 06/09/18 05:34 BP 131/78 06/09/18 05:34 Pulse Ox 97 06/09/18 05:34 - Labs Result Diagrams: 06/09/18 04:15 06/09/18 04:29 Labs: Laboratory Results - last 24 hr 06/08/18 06/08/18 06/08/18 20:26 20:26 20:26 WBC 23.2 H D RBC 4.82 Hgb 14.1 D Hct 40.6 MCV 84.2 MCH 29.2 MCHC 34.7 RDW 13.9 Plt Count 177 MPV 7.6 Neut % (Auto) 90.9 H Lymph % (Auto) 3.3 L [place] % (Auto) 5.5 Eos % (Auto) 0.1 Baso % (Auto) 0.2 Neut # (Auto) 21.1 H Lymph # (Auto) 0.8 L [place] # (Auto) 1.3 H Eos # (Auto) 0.0 Baso # (Auto) 0.1 Neutrophils % (Manual) 93 H Band Neutrophils % 1 Lymphocytes % (Manual) 3 L Monocytes % (Manual) 3 Platelet Estimate Normal RBC Morphology Normal pO2 VBG pH VBG pCO2 VBG HCO3 VBG Total CO2 VBG O2 Sat (Calc) VBG Base Excess VBG Potassium Glucose Lactate Sodium 134 Potassium 4.0 Chloride 101 Carbon Dioxide 20 L Anion Gap 18 BUN 15 Creatinine 1.3 Est GFR ( Amer) > 60 Est GFR (Non-Af Amer) 57 POC Glucose (mg/dL) Random Glucose 236 H Lactic Acid Calcium 9.3 Total Bilirubin 0.6 AST 32 ALT 34 Alkaline Phosphatase 105 Total Protein 7.3 Albumin 4.1 Globulin 3.2 Albumin/Globulin Ratio 1.3 Lipase 110 Venous Blood Potassium Urine Color Yellow Urine Clarity Turbid Urine pH 7.0 Ur Specific [place] 1.010 Urine Protein 2+ H Urine Glucose (UA) 3+ H Urine Ketones Negative Urine Blood 3+ H Urine Nitrate Negative Urine Bilirubin Negative Urine Urobilinogen Normal Ur Leukocyte Esterase 3+ H Urine WBC (Auto) 2129 H Urine RBC (Auto) 764 H Ur Squamous Epith Cells 2 06/09/18 06/09/18 06/09/18 01:05 04:10 04:15 WBC 23.7 H RBC 4.57 Hgb 13.1 Hct 38.6 MCV 84.4 MCH 28.6 MCHC 33.8 RDW 13.9 Plt Count 178 MPV 7.7 Neut % (Auto) 84.6 H Lymph % (Auto) 7.6 L [place] % (Auto) 7.6 Eos % (Auto) 0.1 Baso % (Auto) 0.1 Neut # (Auto) 20.1 H Lymph # (Auto) 1.8 [place] # (Auto) 1.8 H Eos # (Auto) 0.0 Baso # (Auto) 0.0 Neutrophils % (Manual) 80 H Band Neutrophils % 7 H Lymphocytes % (Manual) 7 L Monocytes % (Manual) 6 Platelet Estimate Normal RBC Morphology Normal pO2 60 H VBG pH 7.44 H VBG pCO2 29 L VBG HCO3 22.3 VBG Total CO2 20.6 L VBG O2 Sat (Calc) 94.7 H VBG Base Excess -3.2 L VBG Potassium 3.4 L Glucose 171 H Lactate 0.9 Sodium 137.0 Potassium Chloride 107.0 Carbon Dioxide Anion Gap BUN Creatinine Est GFR ( Amer) Est GFR (Non-Af Amer) POC Glucose (mg/dL) Random Glucose Lactic Acid 0.9 Calcium Total Bilirubin AST ALT Alkaline Phosphatase Total Protein Albumin Globulin Albumin/Globulin Ratio Lipase Venous Blood Potassium 3.4 L Urine Color Urine Clarity Urine pH Ur Specific [place] Urine Protein Urine Glucose (UA) Urine Ketones Urine Blood Urine Nitrate Urine Bilirubin Urine Urobilinogen Ur Leukocyte Esterase Urine WBC (Auto) Urine RBC (Auto) Ur Squamous Epith Cells 06/09/18 06/09/18 04:29 04:37 WBC RBC Hgb Hct MCV MCH MCHC RDW Plt Count MPV Neut % (Auto) Lymph % (Auto) [place] % (Auto) Eos % (Auto) Baso % (Auto) Neut # (Auto) Lymph # (Auto) [place] # (Auto) Eos # (Auto) Baso # (Auto) Neutrophils % (Manual) Band Neutrophils % Lymphocytes % (Manual) Monocytes % (Manual) Platelet Estimate RBC Morphology pO2 VBG pH VBG pCO2 VBG HCO3 VBG Total CO2 VBG O2 Sat (Calc) VBG Base Excess VBG Potassium Glucose Lactate Sodium 138 Potassium 4.1 Chloride 105 Carbon Dioxide 22 Anion Gap 16 BUN 13 Creatinine 1.1 Est GFR ( Amer) > 60 Est GFR (Non-Af Amer) > 60 POC Glucose (mg/dL) 114 H Random Glucose 142 H Lactic Acid Calcium 9.0 Total Bilirubin 0.7 AST 27 ALT 30 Alkaline Phosphatase 83 Total Protein 7.2 Albumin 3.9 Globulin 3.3 Albumin/Globulin Ratio 1.2 Lipase Venous Blood Potassium Urine Color Urine Clarity Urine pH Ur Specific [place] Urine Protein Urine Glucose (UA) Urine Ketones Urine Blood Urine Nitrate Urine Bilirubin Urine Urobilinogen Ur Leukocyte Esterase Urine WBC (Auto) Urine RBC (Auto) Ur Squamous Epith Cells Assessment & Plan - Date & Time Date: 06/09/18 (I have seen and examined the patient. I agree with the findings and plan of care as documented by Dr. Mary. Patient positive for SIRS criteria. UTI and diarrhea. Check urine, blood, and stool cultures. Rocephin and Flagyl for now. Monitor hemodynamic status. Monitor for acute changes.) Time: 06:14 Attending/Attestation - Attestation I have personally seen and examined this patient.: Yes I have fully participated in the care of the patient.: Yes I have reviewed all pertinent clinical information: Yes
[2018-06-09 04:18] LABS: BASO % 0.1 % (0.0-2.0); EOS % 0.1 % (0.0-4.0); HEMOGLOBIN 13.1 g/dL (12.0-18.0); LYMPH # 1.8 K/uL (1.0-4.3); LYMPH % 7.6 % (20.0-40.0); MEAN CELL VOLUME 84.4 fL (80.0-94.0); MEAN CORPUSCULAR HEMOGLOBIN 28.6 pg (27.0-31.0); MEAN CORPUSCULAR HGB CONC 33.8 g/dL (33.0-37.0); MEAN PLATELET VOLUME 7.7 fL (7.2-11.7); MONO # 1.8 K/uL (0.0-0.8); MONO % 7.6 % (0.0-10.0); NEUT # 20.1 K/uL (1.8-7.0); NEUT % 84.6 % (50.0-75.0); PLATELET COUNT 178 K/uL (130-400); RBC 4.57 Mil/uL (4.40-5.90); RED CELL DISTRIBUTION WIDTH 13.9 % (11.5-14.5); WHITE BLOOD COUNT 23.7 K/uL (4.8-10.8)
[2018-06-09 04:45] LABS: ALB/GLOB RATIO 1.2 (1.0-2.1); ALBUMIN 3.9 g/dL (3.5-5.0); ALT/SGPT 30 U/L (21-72); AST/SGOT 27 U/L (17-59); BLOOD UREA NITROGEN 13 mg/dL (9-20); GFR NON-AFRICAN AMERICAN > 60
[2018-06-09 04:54] LABS: BANDS 7 % (0-2); LYMPHOCYTE 7 % (20-40); MONOCYTE 6 % (0-10); NEUTROPHIL 80 % (50-75); PLATELET ESTIMATE NORMAL (NORMAL); TOTAL CELLS COUNTED 100
[2018-06-09] MEDS: metroNIDAZOLE IV 500 mg/100 ml 500 MG/100 ML BAG IVPB SCH ×3 (05:34→18:07)
[2018-06-09] MEDS: (Novolin R) Insulin Human Regular 100 units/ml vial SC SCH ×4 (07:50→22:28)
--- NOTE | 2018-06-09 09:37 | RAD ---
HISTORY: Cord sepsis COMPARISON: No prior. TECHNIQUE: Chest PA and lateral FINDINGS: LINES AND TUBES: None. LUNG AND PLEURA: The lungs are well inflated and clear. No pleural effusion or pneumothorax. HEART AND MEDIASTINUM: The heart is not enlarged. The hilar and mediastinal contours are within normal limits. SKELETAL STRUCTURES: The bony structures are within normal limits for the patient's age. VISUALIZED UPPER ABDOMEN: Normal. OTHER FINDINGS: There is elevation of the right hemidiaphragm. IMPRESSION: No active pulmonary disease.
--- NOTE | 2018-06-09 09:44 | RAD ---
Date of service: 06/09/2018 PROCEDURE: CHEST RADIOGRAPH, 1 VIEW HISTORY: code sepsis COMPARISON: None available. FINDINGS: LUNGS: There is linear atelectasis/scarring in the right lung base. No focal consolidation. The left lung is clear. PLEURA: No pneumothorax or pleural fluid seen. CARDIOVASCULAR: Normal. OSSEOUS STRUCTURES: No significant abnormalities. VISUALIZED UPPER ABDOMEN: Normal. OTHER FINDINGS: None. IMPRESSION: No acute findings.
[2018-06-09] MEDS: Pantoprazole 40 mg EC Tab PO SCH (10:20)
[2018-06-09] MEDS ORDERED: (Novolog) Insulin Aspart, Recombinant 100 u/ml 10 ml vial ONE (12:59)
--- NOTE | 2018-06-09 17:20 | CP.PCM.PN ---
Subjective - Date & Time of Evaluation Date of Evaluation: 06/09/18 Time of Evaluation: 03:15 - Subjective Subjective: Progress Note for Hospitalist Service Pt seen and examined at bedside. Reports frequent episodes of watery diarrhea and associated lower abd/suprapubic pain this am. Admits to urinary frequency/dysuria. Not spiking fevers during the day today. Denies chills, headache, chest pain, sob, n/v/d/c, or other symptoms. Objective - Vital Signs/Intake and Output Vital Signs (last 24 hours): Temp Pulse Resp BP Pulse Ox 97.8 F 87 18 133/78 97 06/09/18 13:14 06/09/18 13:14 06/09/18 13:14 06/09/18 13:14 06/09/18 13:14 Intake and Output: 06/09/18 06/09/18 06:59 18:59 Intake Total 1400 Output Total 1500 1450 Balance -100 -1450 - Medications Medications: Current Medications Acetaminophen (Tylenol 325mg Tab) 650 mg PO Q6 PRN PRN Reason: Fever >100.4 F Albuterol/Ipratropium (Duoneb 3 Mg/0.5 Mg (3 Ml) Ud) 3 ml INH RQ4 PRN PRN Reason: Shortness of Breath Glucagon (Glucagen Diagnostic Kit) 0 mg IM STAT PRN; Protocol PRN Reason: Hypoglycemia Protocol Ceftriaxone Sodium 1 gm/ (Sodium Chloride) 100 mls @ 100 mls/hr IVPB DAILY YO; Protocol Last Admin: 06/09/18 10:25 Dose: 100 mls/hr Dextrose (Dextrose 5% In Water 1000 Ml) 1,000 mls @ 0 mls/hr IV .Q0M PRN; Protocol PRN Reason: Hypoglycemia Protocol Metronidazole (Flagyl) 500 mg in 100 mls @ 100 mls/hr IVPB Q6H YO; Protocol Last Admin: 06/09/18 13:05 Dose: 100 mls/hr Insulin Human Regular (Novolin R) 0 unit SC ACHS YO; Protocol Last Admin: 06/09/18 12:58 Dose: 1 unit Pantoprazole Sodium (Protonix Ec Tab) 40 mg PO DAILY YO Last Admin: 06/09/18 10:20 Dose: 40 mg Tamsulosin HCl (Flomax) 0.4 mg PO DAILY YO Last Admin: 06/09/18 10:20 Dose: 0.4 mg - Labs Labs: 06/09/18 04:15 06/09/18 04:29 - Constitutional Appears: Non-toxic, No Acute Distress - Head Exam Head Exam: ATRAUMATIC, NORMOCEPHALIC - Eye Exam Eye Exam: EOMI, Normal appearance, PERRL - ENT Exam ENT Exam: Mucous Membranes Moist - Respiratory Exam Respiratory Exam: Clear to Ausculation Bilateral, NORMAL BREATHING PATTERN. absent: Rales, Rhonchi, Wheezes - Cardiovascular Exam Cardiovascular Exam: REGULAR RHYTHM, +S1, +S2. absent: Gallop, Rubs, Murmur - GI/Abdominal Exam GI & Abdominal Exam: Soft, Normal Bowel Sounds. absent: Distended, Firm, Guarding Additional comments: Tenderness to palpation in suprapubic region - Extremities Exam Extremities Exam: Full ROM, Normal Capillary Refill, Normal Inspection. absent: Calf Tenderness, Pedal Edema - Back Exam Back Exam: Full ROM, NORMAL INSPECTION. absent: CVA tenderness (L), CVA tenderness (R) - Neurological Exam Neurological Exam: Alert, Awake, CN II-XII Intact, Oriented x3 - Skin Skin Exam: Dry, Intact, Normal Color, Warm Assessment and Plan - Assessment and Plan (Free Text) Assessment: 58 y o M with PMH DM2, asthma, BPH presented to the ED with 2 day history of fever, chills, and diarrhea admitted for evaluation and treatment of sepsis secondary to likely UTI. Also having profuse watery diarrhea, pt describes it as black-colored stools. GI and Urology consulted. Plan: Sepsis - Pt with diarrhea, dysuria, continue to monitor clinical symptoms - likely secondary to UTI and enteritis - Tmax 100.6, no fevers during day today - WBC 23.2 on admission, this am 23.7 - HR 102, no tachycardia during day, continue to monitor - CXR: no active disease - EKG: sinus tachy @104 bpm - Pt given cipro and flagyl in ED - C/w rocephin 1g IV daily - C/w flagyl 500mg IV q6h - F/u UCx, BCx, Stool Cx, C diff toxin ordered - Procal elevated at 0.5 - Lactate normal at 0.9 Diarrhea - likely secondary to viral/bacterial enteritis - Tmax 100.6, no fevers during day, will continue to trend - C/w Rocephin and Flagyl - f/u stool Cx, ova & parasites - Stat FOBT ordered, repeat CBC pending for 6 pm tonight (if Hgb drop will order type and screen) - GI consulted (Dr. Leon), recs appreciated BPH - Pt with urinary retention; of note pt has been diagnosed with prostatitis in the past > 1 y ago - Vigil cath placed in ED, pt voided urine - C/w flomax 0.4 mg PO daily - Will continue to monitor I's/O's - Urology consulted (Dr. Duran), recs appreciated DM2 - low dose sliding scale - accuchecks ACHS - hypoglycemic protocol - A1c pending Asthma - pt denies shortness of breath - duonebs 3L INH q4h PRN PPX DVT: SCDs GI: protonix 40 po daily HHD Pt seen, examined with, and plan d/w Attending physician, Dr. Hinkle. Lucio Castillo, PGY-1, [employer] Pager #[phone]
[2018-06-09 19:25] LABS: BASO % 0.2 % (0.0-2.0); EOS # 0.1 K/uL (0.0-0.7); EOS % 0.3 % (0.0-4.0); HEMOGLOBIN 12.7 g/dL (12.0-18.0); LYMPH # 1.4 K/uL (1.0-4.3); LYMPH % 7.3 % (20.0-40.0); MEAN CELL VOLUME 85.9 fL (80.0-94.0); MEAN CORPUSCULAR HEMOGLOBIN 28.9 pg (27.0-31.0); MEAN CORPUSCULAR HGB CONC 33.6 g/dL (33.0-37.0); MEAN PLATELET VOLUME 7.5 fL (7.2-11.7); MONO # 1.1 K/uL (0.0-0.8); MONO % 5.6 % (0.0-10.0); NEUT # 16.8 K/uL (1.8-7.0); NEUT % 86.6 % (50.0-75.0); PLATELET COUNT 191 K/uL (130-400); RED CELL DISTRIBUTION WIDTH 14.1 % (11.5-14.5); WHITE BLOOD COUNT 19.4 K/uL (4.8-10.8)
[2018-06-09 21:17] LABS: BANDS 3 % (0-2); EOSINOPHIL 1 % (0-4); LYMPHOCYTE 5 % (20-40); MONOCYTE 3 % (0-10); NEUTROPHIL 88 % (50-75); PLATELET ESTIMATE NORMAL (NORMAL); TOTAL CELLS COUNTED 100
[2018-06-10] MEDS: metroNIDAZOLE IV 500 mg/100 ml 500 MG/100 ML BAG IVPB SCH ×4 (00:21→17:29)
[2018-06-10 02:11] VITALS: RESP 20
[2018-06-10 07:14] LABS: BASO % 0.3 % (0.0-2.0); EOS # 0.1 K/uL (0.0-0.7); EOS % 0.6 % (0.0-4.0); HEMOGLOBIN 13.1 g/dL (12.0-18.0); LYMPH # 1.6 K/uL (1.0-4.3); LYMPH % 10.2 % (20.0-40.0); MEAN CELL VOLUME 84.1 fL (80.0-94.0); MEAN CORPUSCULAR HEMOGLOBIN 29.2 pg (27.0-31.0); MEAN CORPUSCULAR HGB CONC 34.8 g/dL (33.0-37.0); MEAN PLATELET VOLUME 7.4 fL (7.2-11.7); MONO # 1.2 K/uL (0.0-0.8); NEUT # 12.4 K/uL (1.8-7.0); NEUT % 80.9 % (50.0-75.0); RBC 4.48 Mil/uL (4.40-5.90); WHITE BLOOD COUNT 15.3 K/uL (4.8-10.8)
[2018-06-10 07:26] LABS: ALB/GLOB RATIO 1.1 (1.0-2.1); ALBUMIN 3.8 g/dL (3.5-5.0); ALT/SGPT 30 U/L (21-72); AST/SGOT 26 U/L (17-59); BLOOD UREA NITROGEN 13 mg/dL (9-20); CALCIUM 9.1 mg/dl (8.6-10.4); GFR NON-AFRICAN AMERICAN > 60
[2018-06-10] MEDS: (Novolin R) Insulin Human Regular 100 units/ml vial SC SCH ×4 (07:46→22:38)
[2018-06-10] MEDS: Pantoprazole 40 mg EC Tab PO SCH (09:56)
[2018-06-10] MEDS: Ciprofloxacin 400mg/200ml D5W 400 MG/200 ML BAG IVPB SCH ×2 (12:57→23:30)
--- NOTE | 2018-06-10 13:45 | CP.PCM.CON ---
History of Present Illness - History of Present Illness History of Present Illness: GI Service Consult CC: diarrhea HPI: 58 year old man admitted with fever and diarrhea. Found to have enlarged prostate, managed by with Vigil, and E Coli UTI. Has multiple loose small nonbloody BMs daily since November. Stool CDiff negative. Outpt eval at [facility] consisted of stool t4sts, also negative per patient history. Never had colonoscopy. CT shows nonspecific colon thickening, and large ampount of liquid stool in ascending colon. Past Patient History - Infectious Disease Hx of Infectious Diseases: None - Past Social History Smoking Status: Never Smoked - PULMONARY Hx Asthma: Yes - ENDOCRINE/METABOLIC Hx Endocrine Disorders: Yes Hx Diabetes Mellitus Type 2: Yes - MUSCULOSKELETAL/RHEUMATOLOGICAL Hx Falls: No Hx Fractures: Yes (nose fracture) - GENITOURINARY/GYNECOLOGICAL Hx Prostate Problems: Yes (as per pt) Other/Comment: Urinary retention - PSYCHIATRIC Hx Substance Use: No - SURGICAL HISTORY Hx Surgeries: No - ANESTHESIA Hx Anesthesia: No Hx Anesthesia Reactions: No Hx Malignant Hyperthermia: No Has any member of the family had a problem w/ anesthesia?: No Meds Allergies/Adverse Reactions: Allergies Allergy/AdvReac Type Severity Reaction Status Date / Time No Known Allergies Allergy Verified 06/08/18 19:03 - Medications Medications: Current Medications Acetaminophen (Tylenol 325mg Tab) 650 mg PO Q6 PRN PRN Reason: Fever >100.4 F Albuterol/Ipratropium (Duoneb 3 Mg/0.5 Mg (3 Ml) Ud) 3 ml INH RQ4 PRN PRN Reason: Shortness of Breath Glucagon (Glucagen Diagnostic Kit) 0 mg IM STAT PRN; Protocol PRN Reason: Hypoglycemia Protocol Dextrose (Dextrose 5% In Water 1000 Ml) 1,000 mls @ 0 mls/hr IV .Q0M PRN; Protocol PRN Reason: Hypoglycemia Protocol Metronidazole (Flagyl) 500 mg in 100 mls @ 100 mls/hr IVPB Q6H YO; Protocol Last Admin: 06/10/18 13:00 Dose: 100 mls/hr Ciprofloxacin (Cipro 400mg/200ml Dsw) 400 mg in 200 mls @ 133 mls/hr IVPB Q12H YO; Protocol Last Admin: 06/10/18 12:57 Dose: 133 mls/hr Insulin Human Regular (Novolin R) 0 unit SC ACHS YO; Protocol Last Admin: 06/10/18 11:34 Dose: Not Given Pantoprazole Sodium (Protonix Ec Tab) 40 mg PO DAILY [facility] Last Admin: 06/10/18 09:56 Dose: 40 mg Pneumococcal Polyvalent Vaccine (Pneumovax 23 Vaccine) 0.5 ml IM .ONCE ONE Stop: 06/11/18 10:01 Tamsulosin HCl (Flomax) 0.4 mg PO DAILY [facility] Last Admin: 06/10/18 09:56 Dose: 0.4 mg Physical Exam - Constitutional Appears: Well, No Acute Distress - Head Exam Head Exam: NORMOCEPHALIC - Eye Exam Eye Exam: absent: Scleral icterus - Respiratory Exam Respiratory Exam: NORMAL BREATHING PATTERN - Cardiovascular Exam Cardiovascular Exam: REGULAR RHYTHM - GI/Abdominal Exam GI & Abdominal Exam: Soft. absent: Distended, Mass, Tenderness Results - Vital Signs Recent Vital Signs: Last Vital Signs Temp 98.1 F 06/10/18 08:00 Pulse 92 H 06/10/18 08:00 Resp 20 06/10/18 08:00 BP 147/79 06/10/18 08:00 Pulse Ox 96 06/10/18 08:00 - Labs Result Diagrams: 06/10/18 07:08 06/10/18 07:08 Labs: Laboratory Results - last 24 hr 06/09/18 06/09/18 06/09/18 04:10 15:16 16:55 WBC RBC Hgb Hct MCV MCH MCHC RDW Plt Count MPV Neut % (Auto) Lymph % (Auto) [place] % (Auto) Eos % (Auto) Baso % (Auto) Neut # (Auto) Lymph # (Auto) [place] # (Auto) Eos # (Auto) Baso # (Auto) Neutrophils % (Manual) Band Neutrophils % Lymphocytes % (Manual) Monocytes % (Manual) Eosinophils % (Manual) Platelet Estimate Sodium Potassium Chloride Carbon Dioxide Anion Gap BUN Creatinine Est GFR ( Amer) Est GFR (Non-Af Amer) POC Glucose (mg/dL) 204 H Random Glucose Hemoglobin A1c Calcium Total Bilirubin AST ALT Alkaline Phosphatase Total Protein Albumin Globulin Albumin/Globulin Ratio Procalcitonin 0.50 H Stool Occult Blood C. difficile Ag & Toxin Negative 06/09/18 06/09/18 06/10/18 19:19 21:21 07:08 WBC 19.4 H 15.3 H RBC 4.40 4.48 Hgb 12.7 13.1 Hct 37.8 37.7 MCV 85.9 84.1 MCH 28.9 29.2 MCHC 33.6 34.8 RDW 14.1 14.0 Plt Count 191 225 MPV 7.5 7.4 Neut % (Auto) 86.6 H 80.9 H Lymph % (Auto) 7.3 L 10.2 L [place] % (Auto) 5.6 8.0 Eos % (Auto) 0.3 0.6 Baso % (Auto) 0.2 0.3 Neut # (Auto) 16.8 H 12.4 H Lymph # (Auto) 1.4 1.6 [place] # (Auto) 1.1 H 1.2 H Eos # (Auto) 0.1 0.1 Baso # (Auto) 0.0 0.0 Neutrophils % (Manual) 88 H Band Neutrophils % 3 H Lymphocytes % (Manual) 5 L Monocytes % (Manual) 3 Eosinophils % (Manual) 1 Platelet Estimate Normal Sodium Potassium Chloride Carbon Dioxide Anion Gap BUN Creatinine Est GFR ( Amer) Est GFR (Non-Af Amer) POC Glucose (mg/dL) 143 H Random Glucose Hemoglobin A1c Calcium Total Bilirubin AST ALT Alkaline Phosphatase Total Protein Albumin Globulin Albumin/Globulin Ratio Procalcitonin Stool Occult Blood C. difficile Ag & Toxin 06/10/18 06/10/18 06/10/18 07:08 07:21 07:46 WBC RBC Hgb Hct MCV MCH MCHC RDW Plt Count MPV Neut % (Auto) Lymph % (Auto) [place] % (Auto) Eos % (Auto) Baso % (Auto) Neut # (Auto) Lymph # (Auto) [place] # (Auto) Eos # (Auto) Baso # (Auto) Neutrophils % (Manual) Band Neutrophils % Lymphocytes % (Manual) Monocytes % (Manual) Eosinophils % (Manual) Platelet Estimate Sodium 140 Potassium 3.7 Chloride 104 Carbon Dioxide 21 L Anion Gap 18 BUN 13 Creatinine 1.0 Est GFR ( Amer) > 60 Est GFR (Non-Af Amer) > 60 POC Glucose (mg/dL) 126 H Random Glucose 139 H Hemoglobin A1c 6.2 Calcium 9.1 Total Bilirubin 0.6 AST 26 ALT 30 Alkaline Phosphatase 86 Total Protein 7.2 Albumin 3.8 Globulin 3.4 Albumin/Globulin Ratio 1.1 Procalcitonin Stool Occult Blood C. difficile Ag & Toxin 06/10/18 06/10/18 10:54 11:29 WBC RBC Hgb Hct MCV MCH MCHC RDW Plt Count MPV Neut % (Auto) Lymph % (Auto) [place] % (Auto) Eos % (Auto) Baso % (Auto) Neut # (Auto) Lymph # (Auto) [place] # (Auto) Eos # (Auto) Baso # (Auto) Neutrophils % (Manual) Band Neutrophils % Lymphocytes % (Manual) Monocytes % (Manual) Eosinophils % (Manual) Platelet Estimate Sodium Potassium Chloride Carbon Dioxide Anion Gap BUN Creatinine Est GFR ( Amer) Est GFR (Non-Af Amer) POC Glucose (mg/dL) 117 H Random Glucose Hemoglobin A1c Calcium Total Bilirubin AST ALT Alkaline Phosphatase Total Protein Albumin Globulin Albumin/Globulin Ratio Procalcitonin Stool Occult Blood Negative C. difficile Ag & Toxin Assessment & Plan (1) UTI (urinary tract infection) Status: Acute (2) Acute urinary retention Status: Acute (3) Diarrhea Assessment and Plan: Undetermined cause. Check stool studies. Elective colonoscopy Status: Acute
[2018-06-10] MEDS: Enoxaparin 40 mg Syringe SC SCH (14:53)
--- NOTE | 2018-06-10 15:48 | CARD ---
APPROVED REPORT Date of service: 06/09/2018 EKG Measurement Heart [id number] <Conclusion> Sinus tachycardia Otherwise normal ECG
--- NOTE | 2018-06-10 19:18 | CP.PCM.PN ---
<Lucía Lewis - Last Filed: 06/10/18 19:54> Subjective - Date & Time of Evaluation Date of Evaluation: 06/10/18 Time of Evaluation: 10:10 - Subjective Subjective: Pt examined at bedside. No acute events overnight. Pt reports multiple episodes of mucoid stool approx every hour since 1:30 am. Pt reports abdominal pain w/ defecation. Denies chest pain, SOB, nausea. Pt reports a history of BPH for which he took medicine, however was told he could stop as the issue had resolved and thus has not taken any meds. Objective - Vital Signs/Intake and Output Vital Signs (last 24 hours): Temp Pulse Resp BP Pulse Ox 98.3 F 82 20 126/69 96 06/10/18 16:18 06/10/18 16:18 06/10/18 16:18 06/10/18 16:18 06/10/18 16:18 - Medications Medications: Current Medications Acetaminophen (Tylenol 325mg Tab) 650 mg PO Q6 PRN PRN Reason: Fever >100.4 F Albuterol/Ipratropium (Duoneb 3 Mg/0.5 Mg (3 Ml) Ud) 3 ml INH RQ4 PRN PRN Reason: Shortness of Breath Enoxaparin Sodium (Lovenox) 40 mg SC DAILY [facility] Last Admin: 06/10/18 14:53 Dose: 40 mg Glucagon (Glucagen Diagnostic Kit) 0 mg IM STAT PRN; Protocol PRN Reason: Hypoglycemia Protocol Dextrose (Dextrose 5% In Water 1000 Ml) 1,000 mls @ 0 mls/hr IV .Q0M PRN; Protocol PRN Reason: Hypoglycemia Protocol Metronidazole (Flagyl) 500 mg in 100 mls @ 100 mls/hr IVPB Q6H YO; Protocol Last Admin: 06/10/18 17:29 Dose: 100 mls/hr Ciprofloxacin (Cipro 400mg/200ml Dsw) 400 mg in 200 mls @ 133 mls/hr IVPB Q12H YO; Protocol Last Admin: 06/10/18 12:57 Dose: 133 mls/hr Insulin Human Regular (Novolin R) 0 unit SC ACHS YO; Protocol Last Admin: 06/10/18 17:31 Dose: 1 unit Pantoprazole Sodium (Protonix Ec Tab) 40 mg PO DAILY [facility] Last Admin: 10/12/18 09:56 Dose: 40 mg Pneumococcal Polyvalent Vaccine (Pneumovax 23 Vaccine) 0.5 ml IM .ONCE ONE Stop: 06/11/18 10:01 Tamsulosin HCl (Flomax) 0.4 mg PO DAILY YO Last Admin: 06/10/18 09:56 Dose: 0.4 mg - Labs Labs: 06/10/18 07:08 06/10/18 07:08 - Constitutional Appears: No Acute Distress - Head Exam Head Exam: ATRAUMATIC, NORMAL INSPECTION, NORMOCEPHALIC - Eye Exam Eye Exam: EOMI, Normal appearance - ENT Exam ENT Exam: Mucous Membranes Moist, Normal Exam - Neck Exam Neck Exam: Normal Inspection - Respiratory Exam Respiratory Exam: Clear to Ausculation Bilateral, NORMAL BREATHING PATTERN - Cardiovascular Exam Cardiovascular Exam: REGULAR RHYTHM, +S1, +S2 - GI/Abdominal Exam GI & Abdominal Exam: Soft, Tenderness (diffusely tender), Normal Bowel Sounds - Extremities Exam Extremities Exam: Normal Inspection. absent: Calf Tenderness, Pedal Edema - Neurological Exam Neurological Exam: Alert, Awake, Normal Gait, Oriented x3 - Psychiatric Exam Psychiatric exam: Normal Affect, Normal Mood - Skin Skin Exam: Dry, Intact, Normal Color, Warm Assessment and Plan - Assessment and Plan (Free Text) Assessment: 58 year old male w/ PMHx of HTN and BPH admitted w/ sepsis Sepsis 2/2 possible colitis/prostatitis/UTI -afebrile -Leukocytosis improving, down to 15.3 -acetaminophen 650mg prn fevers -cipro 400mg q12 -flagyl 500mg q6 -f/u cultures/studies -GI consult Dr. Leon/Deandra -elective colonoscopy BPH -flomax .4mg -finasteride 5mg -león in place 2/2 urinary retention -Urology, Dr. Ethel Duran consulted, awaiting recommendations DM -ISS Ppx -protonix 40mg po -lovenox 40mg sc <Vicki Hinkle - Last Filed: 06/18/18 10:43> Objective - Vital Signs/Intake and Output Vital Signs (last 24 hours): Temp Pulse Resp BP Pulse Ox 97.6 F 82 20 138/83 96 06/11/18 07:38 06/11/18 07:38 06/11/18 07:38 06/11/18 07:38 06/11/18 07:38 - Labs Labs: 06/11/18 08:42 06/11/18 08:42 Attending/Attestation - Attestation I have personally seen and examined this patient.: Yes I have fully participated in the care of the patient.: Yes I have reviewed all pertinent clinical information, including history, physical exam and plan: Yes Notes (Text): Seen and examined by me. discussed with patient's at bedside 1.UTI/h/o prostatitis/BPH/Rentension of urine 2.diarrhea/colitis follow urology and GI recommendation
[2018-06-11] MEDS: metroNIDAZOLE IV 500 mg/100 ml 500 MG/100 ML BAG IVPB SCH ×3 (01:00→11:03)
[2018-06-11 07:40] VITALS: BP 138/83; PULSE 82; TEMP 97.6; O2SAT 96
--- NOTE | 2018-06-11 07:51 | CP.PCM.DIS ---
<Lucía Lewis - Last Filed: 06/11/18 16:43> Provider - Provider Date of Admission: 06/09/18 02:17 Attending physician: Julio Briseno MD Consults: Dr. Leon, GI Dr. Duran, urology Time Spent in preparation of Discharge (in minutes): 29 Diagnosis - Discharge Diagnosis (1) Enteritis Status: Acute (2) BPH (benign prostatic hyperplasia) Status: Acute (3) UTI (urinary tract infection) Status: Acute Hospital Course - Lab Results Lab Results: Micro Results 06/09/18 04:26 Blood Blood Culture - Preliminary NO GROWTH AFTER 48 HOURS 06/09/18 04:25 Blood Blood Culture - Preliminary NO GROWTH AFTER 48 HOURS 06/08/18 20:26 Urine Urine Culture - Final Escherichia Coli 06/09/18 04:32 Stool Ova and Parasite Concentrate Exam - Final Most Recent Lab Values WBC 15.3 K/uL (4.8-10.8) H 06/10/18 07:08 RBC 4.48 Mil/uL (4.40-5.90) 06/10/18 07:08 Hgb 13.1 g/dL (12.0-18.0) 06/10/18 07:08 Hct 37.7 % (35.0-51.0) 06/10/18 07:08 MCV 84.1 fL (80.0-94.0) 06/10/18 07:08 MCH 29.2 pg (27.0-31.0) 06/10/18 07:08 MCHC 34.8 g/dL (33.0-37.0) 06/10/18 07:08 RDW 14.0 % (11.5-14.5) 06/10/18 07:08 Plt Count 225 K/uL (130-400) 06/10/18 07:08 MPV 7.4 fL (7.2-11.7) 06/10/18 07:08 Neut % (Auto) 80.9 % (50.0-75.0) H 06/10/18 07:08 Lymph % (Auto) 10.2 % (20.0-40.0) L 06/10/18 07:08 [place] % (Auto) 8.0 % (0.0-10.0) 06/10/18 07:08 Eos % (Auto) 0.6 % (0.0-4.0) 06/10/18 07:08 Baso % (Auto) 0.3 % (0.0-2.0) 06/10/18 07:08 Neut # (Auto) 12.4 K/uL (1.8-7.0) H 06/10/18 07:08 Lymph # (Auto) 1.6 K/uL (1.0-4.3) 06/10/18 07:08 [place] # (Auto) 1.2 K/uL (0.0-0.8) H 06/10/18 07:08 Eos # (Auto) 0.1 K/uL (0.0-0.7) 06/10/18 07:08 Baso # (Auto) 0.0 K/uL (0.0-0.2) 06/10/18 07:08 Neutrophils % (Manual) 88 % (50-75) H 06/09/18 19:19 Band Neutrophils % 3 % (0-2) H 06/09/18 19:19 Lymphocytes % (Manual) 5 % (20-40) L 06/09/18 19:19 Monocytes % (Manual) 3 % (0-10) 06/09/18 19:19 Eosinophils % (Manual) 1 % (0-4) 06/09/18 19:19 Platelet Estimate Normal (NORMAL) 06/09/18 19:19 RBC Morphology Normal 06/09/18 04:15 pO2 60 mm/Hg (30-55) H 06/09/18 01:05 VBG pH 7.44 (7.32-7.43) H 06/09/18 01:05 VBG pCO2 29 mmHg (40-60) L 06/09/18 01:05 VBG HCO3 22.3 mmol/L 06/09/18 01:05 VBG Total CO2 20.6 mmol/L (22-28) L 06/09/18 01:05 VBG O2 Sat (Calc) 94.7 % (40-65) H 06/09/18 01:05 VBG Base Excess -3.2 mmol/L (0.0-2.0) L 06/09/18 01:05 VBG Potassium 3.4 mmol/L (3.6-5.2) L 06/09/18 01:05 Sodium 137.0 mmol/l (132-148) 06/09/18 01:05 Chloride 107.0 mmol/L (98-107) 06/09/18 01:05 Glucose 171 mg/dl (75-110) H 06/09/18 01:05 Lactate 0.9 mmol/L (0.7-2.1) 06/09/18 01:05 Sodium 140 mmol/L (132-148) 06/10/18 07:08 Potassium 3.7 mmol/L (3.6-5.2) 06/10/18 07:08 Chloride 104 mmol/L (98-107) 06/10/18 07:08 Carbon Dioxide 21 mmol/L (22-30) L 06/10/18 07:08 Anion Gap 18 (10-20) 06/10/18 07:08 BUN 13 mg/dL (9-20) 06/10/18 07:08 Creatinine 1.0 mg/dL (0.8-1.5) 06/10/18 07:08 Est GFR ( Amer) > 60 06/10/18 07:08 Est GFR (Non-Af Amer) > 60 06/10/18 07:08 POC Glucose (mg/dL) 128 mg/dL (65-110) H 06/11/18 07:06 Random Glucose 139 mg/dL (75-110) H 06/10/18 07:08 Hemoglobin A1c 6.2 % (4.2-6.5) 06/10/18 07:46 Lactic Acid 0.9 mmol/L (0.7-2.1) 06/09/18 04:10 Calcium 9.1 mg/dl (8.6-10.4) 06/10/18 07:08 Total Bilirubin 0.6 mg/dL (0.2-1.3) 06/10/18 07:08 AST 26 U/L (17-59) 06/10/18 07:08 ALT 30 U/L (21-72) 06/10/18 07:08 Alkaline Phosphatase 86 U/L (38-126) 06/10/18 07:08 Total Protein 7.2 g/dL (6.3-8.3) 06/10/18 07:08 Albumin 3.8 g/dL (3.5-5.0) 06/10/18 07:08 Globulin 3.4 gm/dL (2.2-3.9) 06/10/18 07:08 Albumin/Globulin Ratio 1.1 (1.0-2.1) 06/10/18 07:08 Lipase 110 U/L (23-300) 06/08/18 20:26 Procalcitonin 0.50 NG/ML (0.19-0.49) H 06/09/18 04:10 Venous Blood Potassium 3.4 mmol/L (3.6-5.2) L 06/09/18 01:05 Urine Color Yellow (YELLOW) 06/08/18 20:26 Urine Clarity Turbid (Clear) 06/08/18 20:26 Urine pH 7.0 (5.0-8.0) 06/08/18 20:26 Ur Specific [place] 1.010 (1.003-1.030) 06/08/18 20:26 Urine Protein 2+ mg/dL (NEGATIVE) H 06/08/18 20:26 Urine Glucose (UA) 3+ mg/dL (Normal) H 06/08/18 20:26 Urine Ketones Negative mg/dL (NEGATIVE) 06/08/18 20:26 Urine Blood 3+ (NEGATIVE) H 06/08/18 20:26 Urine Nitrate Negative (NEGATIVE) 06/08/18 20:26 Urine Bilirubin Negative (NEGATIVE) 06/08/18 20:26 Urine Urobilinogen Normal mg/dL (0.2-1.0) 06/08/18 20:26 Ur Leukocyte Esterase 3+ Kem/uL (Negative) H 06/08/18 20:26 Urine WBC (Auto) 2129 /hpf (0-5) H 06/08/18 20:26 Urine RBC (Auto) 764 /hpf (0-3) H 06/08/18 20:26 Ur Squamous Epith Cells 2 /hpf (0-5) 06/08/18 20:26 Stool Occult Blood Negative (NEGATIVE) 06/10/18 10:54 B-Hydroxybutyrate 0.28 mM (0.02-0.27) H 06/09/18 04:10 C. difficile Ag & Toxin Negative (NEGATIVE) 06/09/18 15:16 - Hospital Course Hospital Course: Patient was evaluated and treated at [facility] from 06/08/18-06/11/18. Pt presented with diarrhea and urinary retention. Blood work and stool studies performed. Finding were negative for ova and parasite, c.diff, salmonella, shigella, campylobacter. Urine cx was positive for E. Coli. Pt was started on IV antibiotics. GI was consulted and recommended to follow up outpatient if necessary. Urology was consulted due to urinary retention and history of BPH. Pt started on finasteride and flomax, león inserted. Urology recommended pt follow up on Wednesday. Patient discharged stable on antibiotics, flomax, finasteride and w/ león. HPI on admission: "58yo M with PMH DM2, asthma, BPH presents to ED with 2 day history of fever, chills, and diarrhea. He reports a subjective fever at home. He tried pepto at home for the diarrhea but found no relief. He reports his at home is sick as well with viral-like symptoms. He denies any recent travel or eating at any barbeques. He reports associated increase in urinary frequency and dysuria. He denies blood in the urine. Today, he felt that he could not urinate, so he came to the ED. He denies any shortness of breath, chest pain, nausea, vomiting. " Refer to EMR for complete record Discharge Exam - Head Exam Head Exam: ATRAUMATIC, NORMAL INSPECTION, NORMOCEPHALIC - Eye Exam Eye Exam: EOMI, Normal appearance - ENT Exam ENT Exam: Mucous Membranes Moist, Normal Exam - Neck Exam Neck exam: Normal Inspection - Respiratory Exam Respiratory Exam: Clear to PA & Lateral, NORMAL BREATHING PATTERN, UNREMARKABLE - Cardiovascular Exam Cardiovascular Exam: REGULAR RHYTHM, +S1, +S2 - GI/Abdominal Exam GI & Abdominal Exam: Normal Bowel Sounds, Tenderness, Unremarkable. absent: Distended - Extremities Exam Extremities exam: normal inspection - Neurological Exam Neurological exam: Alert, Normal Gait, Oriented x3 - Psychiatric Exam Psychiatric exam: Normal Affect, Normal Mood - Skin Skin Exam: Dry, Intact, Normal Color, Warm Discharge Plan - Discharge Medications Prescriptions: Ciprofloxacin HCl [Cipro] 500 mg PO BID #20 tablet RX: Finasteride [Proscar] 5 mg PO DAILY #30 tab RX: Tamsulosin [Flomax] 0.4 mg PO DAILY #30 cap - Follow Up Plan Condition: STABLE Disposition: HOME/ ROUTINE Instructions: Urinary Tract Infection, Adult (DC), How to Care for Your León Catheter, Male, Benign Prostatic Hyperplasia (Enlarged Prostate) (DC), León Catheter, Male, Finasteride, Tamsulosin, Ciprofloxacin and Fluocinolone, Urinary Retention (DC) Additional Instructions: Patient stable for discharge home. Patient advised to continue with home medications and is being given a prescription for flomax, 1 per day; finasteride, 1 per day; and for Ciprofloxacin 500mg to be take 2 times per day, once in the morning and once in the evening for a total of 10 days. Patient is also advised to follow up with urologist Dr. Duran on Wednesday at 10am at [address] [place] [address] in [place]. Patient is being discharged with a león in place per Dr. Duran's recommendation. Pt advised to return to ED with any worsening of symptoms. <Vicki Hinkle - Last Filed: 06/17/18 22:02> Provider - Provider Date of Admission: 06/09/18 02:17 Attending physician: Julio Briseno MD Hospital Course - Lab Results Lab Results: Micro Results 06/09/18 04:26 Blood Blood Culture - Final NO GROWTH AFTER 5 DAYS 06/09/18 04:26 Blood Gram Stain - Final TEST NOT PERFORMED 06/09/18 04:25 Blood Blood Culture - Final NO GROWTH AFTER 5 DAYS 06/09/18 04:25 Blood Gram Stain - Final TEST NOT PERFORMED 06/09/18 04:33 Stool Stool Culture - Final NO SALMONELLA, SHIGELLA OR CAMPYLOBACTER ISOLATED. 06/08/18 20:26 Urine Urine Culture - Final Escherichia Coli 06/09/18 04:32 Stool Ova and Parasite Concentrate Exam - Final Most Recent Lab Values WBC 8.4 K/uL (4.8-10.8) 06/11/18 08:42 RBC 4.50 Mil/uL (4.40-5.90) 06/11/18 08:42 Hgb 13.2 g/dL (12.0-18.0) 06/11/18 08:42 Hct 37.7 % (35.0-51.0) 06/11/18 08:42 MCV 83.8 fL (80.0-94.0) 06/11/18 08:42 MCH 29.3 pg (27.0-31.0) 06/11/18 08:42 MCHC 35.0 g/dL (33.0-37.0) 06/11/18 08:42 RDW 13.8 % (11.5-14.5) 06/11/18 08:42 Plt Count 239 K/uL (130-400) 06/11/18 08:42 MPV 7.1 fL (7.2-11.7) L 06/11/18 08:42 Neut % (Auto) 70.4 % (50.0-75.0) 06/11/18 08:42 Lymph % (Auto) 16.4 % (20.0-40.0) L 06/11/18 08:42 [place] % (Auto) 10.7 % (0.0-10.0) H 06/11/18 08:42 Eos % (Auto) 2.0 % (0.0-4.0) 06/11/18 08:42 Baso % (Auto) 0.5 % (0.0-2.0) 06/11/18 08:42 Neut # (Auto) 5.9 K/uL (1.8-7.0) 06/11/18 08:42 Lymph # (Auto) 1.4 K/uL (1.0-4.3) 06/11/18 08:42 [place] # (Auto) 0.9 K/uL (0.0-0.8) H 06/11/18 08:42 Eos # (Auto) 0.2 K/uL (0.0-0.7) 06/11/18 08:42 Baso # (Auto) 0.0 K/uL (0.0-0.2) 06/11/18 08:42 Neutrophils % (Manual) 88 % (50-75) H 06/09/18 19:19 Band Neutrophils % 3 % (0-2) H 06/09/18 19:19 Lymphocytes % (Manual) 5 % (20-40) L 06/09/18 19:19 Monocytes % (Manual) 3 % (0-10) 06/09/18 19:19 Eosinophils % (Manual) 1 % (0-4) 06/09/18 19:19 Platelet Estimate Normal (NORMAL) 06/09/18 19:19 RBC Morphology Normal 06/09/18 04:15 pO2 60 mm/Hg (30-55) H 06/09/18 01:05 VBG pH 7.44 (7.32-7.43) H 06/09/18 01:05 VBG pCO2 29 mmHg (40-60) L 06/09/18 01:05 VBG HCO3 22.3 mmol/L 06/09/18 01:05 VBG Total CO2 20.6 mmol/L (22-28) L 06/09/18 01:05 VBG O2 Sat (Calc) 94.7 % (40-65) H 06/09/18 01:05 VBG Base Excess -3.2 mmol/L (0.0-2.0) L 06/09/18 01:05 VBG Potassium 3.4 mmol/L (3.6-5.2) L 06/09/18 01:05 Sodium 137.0 mmol/l (132-148) 06/09/18 01:05 Chloride 107.0 mmol/L (98-107) 06/09/18 01:05 Glucose 171 mg/dl (75-110) H 06/09/18 01:05 Lactate 0.9 mmol/L (0.7-2.1) 06/09/18 01:05 Sodium 134 mmol/L (132-148) 06/11/18 08:42 Potassium 3.5 mmol/L (3.6-5.2) L 06/11/18 08:42 Chloride 100 mmol/L (98-107) 06/11/18 08:42 Carbon Dioxide 22 mmol/L (22-30) 06/11/18 08:42 Anion Gap 16 (10-20) 06/11/18 08:42 BUN 15 mg/dL (9-20) 06/11/18 08:42 Creatinine 1.0 mg/dL (0.8-1.5) 06/11/18 08:42 Est GFR ( Amer) > 60 06/11/18 08:42 Est GFR (Non-Af Amer) > 60 06/11/18 08:42 POC Glucose (mg/dL) 168 mg/dL (65-110) H 06/11/18 11:16 Random Glucose 164 mg/dL (75-110) H 06/11/18 08:42 Hemoglobin A1c 6.2 % (4.2-6.5) 06/10/18 07:46 Lactic Acid 0.9 mmol/L (0.7-2.1) 06/09/18 04:10 Calcium 8.9 mg/dl (8.6-10.4) 06/11/18 08:42 Total Bilirubin 0.4 mg/dL (0.2-1.3) 06/11/18 08:42 AST 32 U/L (17-59) 06/11/18 08:42 ALT 38 U/L (21-72) 06/11/18 08:42 Alkaline Phosphatase 80 U/L (38-126) 06/11/18 08:42 C-React Prot High Sens > 15.00 mg/L (1.00-3.00) H 06/11/18 08:42 Total Protein 7.0 g/dL (6.3-8.3) 06/11/18 08:42 Albumin 3.8 g/dL (3.5-5.0) 06/11/18 08:42 Globulin 3.1 gm/dL (2.2-3.9) 06/11/18 08:42 Albumin/Globulin Ratio 1.2 (1.0-2.1) 06/11/18 08:42 Lipase 110 U/L (23-300) 06/08/18 20:26 Vitamin B12 535 pg/mL (239-931) 06/11/18 08:42 Folate 15.4 ng/mL 06/11/18 08:42 Procalcitonin 0.50 NG/ML (0.19-0.49) H 06/09/18 04:10 Venous Blood Potassium 3.4 mmol/L (3.6-5.2) L 06/09/18 01:05 Urine Color Yellow (YELLOW) 06/08/18 20:26 Urine Clarity Turbid (Clear) 06/08/18 20:26 Urine pH 7.0 (5.0-8.0) 06/08/18 20:26 Ur Specific [place] 1.010 (1.003-1.030) 06/08/18 20:26 Urine Protein 2+ mg/dL (NEGATIVE) H 06/08/18 20:26 Urine Glucose (UA) 3+ mg/dL (Normal) H 06/08/18 20:26 Urine Ketones Negative mg/dL (NEGATIVE) 06/08/18 20: Urine Blood 3+ (NEGATIVE) H 06/08/18 20:26 Urine Nitrate Negative (NEGATIVE) 06/08/18 20:26 Urine Bilirubin Negative (NEGATIVE) 06/08/18 20:26 Urine Urobilinogen Normal mg/dL (0.2-1.0) 06/08/18 20:26 Ur Leukocyte Esterase 3+ Kem/uL (Negative) H 06/08/18 20:26 Urine WBC (Auto) 2129 /hpf (0-5) H 06/08/18 20:26 Urine RBC (Auto) 764 /hpf (0-3) H 06/08/18 20:26 Ur Squamous Epith Cells 2 /hpf (0-5) 06/08/18 20:26 Stool Occult Blood Negative (NEGATIVE) 06/10/18 10:54 B-Hydroxybutyrate 0.28 mM (0.02-0.27) H 06/09/18 04:10 C. difficile Ag & Toxin Negative (NEGATIVE) 06/09/18 15:16 Attending/Attestation - Attestation I have personally seen and examined this patient.: Yes I have fully participated in the care of the patient.: Yes I have reviewed all pertinent clinical information, including history, physical exam and plan: Yes
[2018-06-11] MEDS: (Novolin R) Insulin Human Regular 100 units/ml vial SC SCH ×2 (08:05→11:36)
[2018-06-11 08:54] LABS: BASO % 0.5 % (0.0-2.0); EOS # 0.2 K/uL (0.0-0.7); HEMOGLOBIN 13.2 g/dL (12.0-18.0); LYMPH # 1.4 K/uL (1.0-4.3); LYMPH % 16.4 % (20.0-40.0); MEAN CELL VOLUME 83.8 fL (80.0-94.0); MEAN CORPUSCULAR HEMOGLOBIN 29.3 pg (27.0-31.0); MEAN PLATELET VOLUME 7.1 fL (7.2-11.7); MONO # 0.9 K/uL (0.0-0.8); MONO % 10.7 % (0.0-10.0); NEUT # 5.9 K/uL (1.8-7.0); NEUT % 70.4 % (50.0-75.0); RBC 4.5 Mil/uL (4.40-5.90); RED CELL DISTRIBUTION WIDTH 13.8 % (11.5-14.5); WHITE BLOOD COUNT 8.4 K/uL (4.8-10.8)
[2018-06-11 09:07] LABS: ALB/GLOB RATIO 1.2 (1.0-2.1); ALBUMIN 3.8 g/dL (3.5-5.0); ALT/SGPT 38 U/L (21-72); AST/SGOT 32 U/L (17-59); BLOOD UREA NITROGEN 15 mg/dL (9-20); CALCIUM 8.9 mg/dl (8.6-10.4); GFR NON-AFRICAN AMERICAN > 60
[2018-06-11] MEDS: Enoxaparin 40 mg Syringe SC SCH (09:50)
[2018-06-11] MEDS: Pantoprazole 40 mg EC Tab PO SCH (09:50)
[2018-06-11] MEDS ORDERED: Pneumococcal 23-Valent Vaccine IM ONE (10:00)
[2018-06-11 10:20] LABS: FOLATE 15.4 ng/mL
[2018-06-11] MEDS: Ciprofloxacin 400mg/200ml D5W 400 MG/200 ML BAG IVPB SCH (11:03)
--- NOTE | 2018-06-11 11:03 | CP.PCM.PN ---
Subjective - Date & Time of Evaluation Date of Evaluation: 06/11/18 Time of Evaluation: 10:50 - Subjective Subjective: F/U diarrhea.Pt seen with RN. Pt reports diarrhea- mult per day- but not at night. RN reports stools is SMALL AMOUNT and PELLETS. Not watery stool. Denies RB, melena, fever, chills, SZ, LOC , CARTAGENA, cough , hemoptysis Objective - Vital Signs/Intake and Output Vital Signs (last 24 hours): Temp Pulse Resp BP Pulse Ox 97.6 F 82 20 138/83 96 06/11/18 07:38 06/11/18 07:38 06/11/18 07:38 06/11/18 07:38 06/11/18 07:38 Intake and Output: 06/11/18 06/11/18 06:59 18:59 Intake Total 1150 Output Total 700 Balance 450 - Medications Medications: Current Medications Acetaminophen (Tylenol 325mg Tab) 650 mg PO Q6 PRN PRN Reason: Fever >100.4 F Albuterol/Ipratropium (Duoneb 3 Mg/0.5 Mg (3 Ml) Ud) 3 ml INH RQ4 PRN PRN Reason: Shortness of Breath Enoxaparin Sodium (Lovenox) 40 mg SC DAILY YO Last Admin: 06/11/18 09:50 Dose: 40 mg Finasteride (Proscar) 5 mg PO DAILY YO Last Admin: 06/11/18 09:50 Dose: 5 mg Glucagon (Glucagen Diagnostic Kit) 0 mg IM STAT PRN; Protocol PRN Reason: Hypoglycemia Protocol Dextrose (Dextrose 5% In Water 1000 Ml) 1,000 mls @ 0 mls/hr IV .Q0M PRN; Protocol PRN Reason: Hypoglycemia Protocol Metronidazole (Flagyl) 500 mg in 100 mls @ 100 mls/hr IVPB Q6H YO; Protocol Last Admin: 06/11/18 05:45 Dose: 100 mls/hr Ciprofloxacin (Cipro 400mg/200ml Dsw) 400 mg in 200 mls @ 133 mls/hr IVPB Q12H YO; Protocol Last Admin: 06/10/18 23:30 Dose: 133 mls/hr Insulin Human Regular (Novolin R) 0 unit SC ACHS YO; Protocol Last Admin: 06/11/18 08:05 Dose: Not Given Pantoprazole Sodium (Protonix Ec Tab) 40 mg PO DAILY [facility] Last Admin: 06/11/18 09:50 Dose: 40 mg Tamsulosin HCl (Flomax) 0.4 mg PO DAILY [facility] Last Admin: 06/11/18 09:50 Dose: 0.4 mg - Labs Labs: 06/11/18 08:42 06/11/18 08:42 - Constitutional Appears: Well - Respiratory Exam Respiratory Exam: Clear to Ausculation Bilateral - Cardiovascular Exam Cardiovascular Exam: RRR - GI/Abdominal Exam GI & Abdominal Exam: Soft, Normal Bowel Sounds. absent: Guarding, Tenderness, Hernia, Rebound - Neurological Exam Neurological Exam: Alert, Oriented x3 Assessment and Plan (1) Enteritis Status: Acute (2) UTI (urinary tract infection) Status: Acute (3) Urinary retention Status: Acute (4) Diarrhea Assessment & Plan: Elev WBC- likely infectiouw. WBC is improved. RN reports stool samples are NOT diarrhea. c diff is neg. Rec- Check stool c/s, O & P, continue meds. Outpatient colonsocopy- follow up in office or clinic. Discussed with patient. Status: Acute
== END 2018-06-11 14:20 | disposition home or self-care (01) | DRG 249 ==
LOC: C.ER 18:42 → C.9E 06-09 02:17 → C.3T 06-09 14:08
PROVIDERS: ADMIT Family Medicine; ATTEND Family Medicine
DX: K52.9 Noninfective gastroenteritis and colitis, unspecified (principal); N39.0 Urinary tract infection, site not specified; I10 Essential (primary) hypertension; B96.20 Unspecified Escherichia coli [E. coli] as the cause of diseases classified elsewhere; E11.9 Type 2 diabetes mellitus without complications; N40.1 Benign prostatic hyperplasia with lower urinary tract symptoms; R33.8 Other retention of urine; J45.909 Unspecified asthma, uncomplicated; Z83.3 Family history of diabetes mellitus; Z82.49 Family history of ischemic heart disease and other diseases of the circulatory system